=== PATIENT | female | born 1990 | race Caucasian/White ===

== ENCOUNTER 2016-04-17 15:58 | Emergency (ER) | payer OTHER ==
[~2016-04-17] VITALS: Ht 172.7 cm; Wt 119.0 kg
[~2016-04-17 15:58] MED LIST: DOXY100C76 PO; LEVO88TA3 PO; SERT-234 PO
[2016-04-17 16:02] VITALS: TEMP 36.6; Ht 172.7 cm; Wt 119.0 kg
[2016-04-17] MEDS ORDERED: FAMOTIDINE 20MG/102 ML D5W IV STA (16:14)
[2016-04-17 16:26] VITALS: O2SAT 97
[2016-04-17 16:30] VITALS: BP 134/69
[2016-04-17 17:28] VITALS: PULSE 74
[2016-04-17] MEDS ORDERED: EPP3/2 IM (17:34)
[2016-04-17] MEDS ORDERED: PRED20TA PO (17:34)
--- NOTE | 2016-04-17 19:29 | EMERGENCY ROOM VISIT NOTE ---
History Report prepared by Laquita: Aydin Lobo Under the Supervision of: Dr. Rikki Kate M.D. First contact with patient: 16:04 Chief Complaint: ALLERGIC REACTION Stated Complaint: ALLERGIC REACTION Nursing Triage Summary: Pt reports she began feeling itchy, hives, SOB, tightness in throat after eating a ham sandwich, flaming hot cheetos, and a peanut butter cup. Pt has no known food allergies. Pt does hav several medication allergies. Pt was given Benadryl 50mg, Zofran 4mg, and Solumedrol 125mg. Pt reports pain in throat and some itchiness still History of Present Illness The patient is a 25 year old female who presents to the Emergency Room with complaints of an acute allergic reaction since 1399 today. The patient's mouth started to become itchy. She then broke out in hives all over her body. She also had some throat tightening. The patient had 25 mg Benadryl at home and another dose in the ambulance. She also had Solu-Medrol and Zofran in the ambulance. The patient is feeling better but is still covered in hives. She did not have any tongue swelling or shortness of breath. The patient does not have any known food or environmental allergies. She is allergic to multiple antibiotics, including Bactrim, Keflex, Vancomycin, and Penicillin. The patient ate a ham sandwich, Cheetos, and a peanut butter cup today. She does not have a family history of food allergies. The patient has not started any new soaps, detergents, or medications. She has never been tested for allergies. She is allergic to bee stings. Source of History: patient Onset: 1399 Position: other (global) Quality: other (allergic reaction) Timing: other (acute) Modifying Factors (Relieving): other (Benadryl, Solu-Medrol) Associated Symptoms: + rash (hives), No SOB Review of Systems See HPI for pertinent positives & negatives. A total of 10 systems reviewed and were otherwise negative. Past Medical & Surgical Medical Problems: (1) Arthroscopy of knee joint (2) Removal of ovarian cyst (3) Tonsillectomy Family History Patient reports no known family medical history. Social History Smoking Status: Never Smoker Alcohol Use: none Drug Use: none Housing Status: lives with family Current/Historical Medications Scheduled Epinephrine (Epipen), 0.3 MG IM UD Prednisone (Prednisone), 0 PO DAILY Sertraline (Zoloft), 100 MG PO DAILY Allergies Coded Allergies: Cephalexin (Verified Allergy, Severe, SHORTNESS OF BREATH, 04/17/16) ,BLISTERS IN MOUTH Sulfamethoxazole w/Trimethoprim (Verified Allergy, Severe, SHORTNESS OF BREATH, blisters in mouth, 04/17/16) Oxycodone (Verified Allergy, Intermediate, possible hives, 04/17/16) 04/19/11: TYLENOL WITH CODEINE IS OK TO TAKE PER PATIENT Penicillins (Verified Allergy, Intermediate, possible hives, 04/17/16) Latex1 -Allergic Contact Dermititis (Verified Allergy, Unknown, red bumpy skin, 04/17/16) Midazolam (Verified Adverse Reaction, Intermediate, ITCHY, 04/17/16) Vancomycin (Verified Adverse Reaction, Mild, ITCHING,FLUSHING, ?SREEDHAR SYNDROME, 04/17/16) Physical Exam Vital Signs Date Time Temp Pulse Resp B/P Pulse Ox O2 Delivery O2 Flow Rate FiO2 04/17/16 17:28 74 17 04/17/16 16:58 78 17 04/17/16 16:39 80 04/17/16 16:30 134/69 04/17/16 16:26 77 20 132/69 97 Room Air 04/17/16 16:02 36.6 81 16 122/70 96 Room Air 04/17/16 16:02 97 Room Air Physical Exam Constitutional: Vital signs reviewed. Eyes: Pupils are equal round reactive to light. Conjunctiva are noninjected. ENT: Pharynx is clear without erythema or exudate. Mucous membranes are moist. No swelling to the tongue or uvula. Neck supple without meningeal signs. Respiratory: Clear to auscultation bilaterally. Breath sounds are equal bilaterally. No stridor or wheezing. Cardiovascular: Regular rate and rhythm. No rubs or gallops. GI: Soft, nondistended and nontender. Bowel sounds are present. Musculoskeletal: No peripheral edema. Integumentary: No cyanosis. Diffuse hives to the face, trunk, and upper extremities. Neurological: The patient is awake and alert. No focal deficits. Psychiatric: Normal affect. Medical Decision & Procedures Medications Administered Medications (Trade) Dose Ordered Sig/Anjel Route Start Time Stop Time Status Last Admin Dose Admin Famotidine (Pepcid 20mg/100 ml) 20 mg ONE STAT IV 04/17/16 16:14 04/17/16 16:15 DC 04/17/16 16:26 20 MG ED Course 1610: The patient was evaluated in room C7. A complete history and physical exam was performed. 161: Famotidine 20 mg IV. 1730: The patient is feeling better, and her rash is improved. I reviewed the discharge instructions with her. I also reviewed indications for epi pen use. She is ready for discharge. Medical Decision This is a 75-year-old female presents with an acute allergic reaction. I did perform a limited focused review of portions of the patient's old chart on the electronic medical record. The patient was here on April 06 with chest pain and shortness of breath. She was worked up in the ED and discharged to follow up with her PCP. I did evaluate the patient as noted above. The patient did receive Solu-Medrol and Benadryl prior to arrival. I did treat her with Pepcid IV. I did observe the patient here in the emergency department. She did have improvement of her symptoms and did feel well enough for discharge. At this time the cause of her symptoms is unclear. She has no known food allergies or any family history of food allergies. I did recommend she follow with her doctor for referral to an registered public health nurse for further evaluation. She was told to avoid nuts as this is a common allergen. She was also given a prescription for prednisone and an EpiPen and instructed on its use. She does state that she has previously had an EpiPen. She was discharged in good condition. Impression Primary Impression: Acute allergic reaction Scribe Attestation The scribe's documentation has been prepared under my direct and personally reviewed by me in its entirety. I confirm that the note above accurately reflects all work, treatment, procedures, and medical decision making performed by me. Departure Information Dispostion Home / Self-Care Prescriptions Prednisone (Prednisone) 20 Mg Tab 0 PO DAILY, #14 TAB 3 TABS DAILY FOR 2 DAYS, THEN 2 TABS DAILY FOR 2 DAYS, THEN 1 TAB DAILY FOR 2 DAYS, THEN 1/2 TAB DAILY FOR 2 DAYS. Prov: Rikki Kate M.D. 04/17/16 Epinephrine (EPIPEN) 0.3 Mg/0.3 Ml Inj 0.3 MG IM UD, #1 BOX Prov: Rikki Kate M.D. 04/17/16 Referrals RV. Guillaume MD (PCP) Forms HOME CARE DOCUMENTATION FORM, IMPORTANT VISIT INFORMATION Patient Instructions A Signature Page, ED Allergic Reaction General Other, My [facility] Additional Instructions You have been examined and treated today on an emergency basis only. This is not a substitute for, or an effort to provide, complete comprehensive medical care. It is impossible to recognize and treat all injuries or illnesses in a single emergency department visit. It is therefore important that you follow up closely with your physician for registered public health nurse referral. Call as soon as possible for an appointment. Return for worsening symptoms or if you develop swelling to your tongue or difficulty breathing or any other concerning symptoms. Problem Qualifiers Primary Impression: Acute allergic reaction Encounter type: initial encounter Qualified Codes: T78.40XA - Allergy, unspecified, initial encounter
== END 2016-04-17 17:52 | disposition home or self-care (01) ==
LOC: EDBD 15:58 → C.EDC 15:58
DX: T78.40XA Allergy, unspecified, initial encounter (principal); X58.XXXA Exposure to other specified factors, initial encounter; Z91.040 Latex allergy status; Z88.0 Allergy status to penicillin; Z88.1 Allergy status to other antibiotic agents; Z88.2 Allergy status to sulfonamides; Z91.030 Bee allergy status

== ENCOUNTER 2016-06-07 09:59 | Emergency (ER) | payer OTHER ==
[~2016-06-07] VITALS: Ht 172.7 cm; Wt 120.7 kg
[~2016-06-07 09:59] MED LIST changes: -DOXY100C76 PO; +EPP3/2 IM; -LEVO88TA3 PO; +PRED20TA PO
[2016-06-07 10:13] VITALS: Ht 172.7 cm; Wt 120.7 kg
[2016-06-07] MEDS ORDERED: ACETAMINOPHEN 500 MG TAB PO ONE (11:01)
[2016-06-07] MEDS ORDERED: KETOROLAC TROMETHAMINE 30 MG/ML VIAL IV STA (11:11)
[2016-06-07] MEDS ORDERED: SODIUM CHLORIDE 0.9% 1000ML 1,000 ML IV ONE (11:15)
[2016-06-07 11:45] LABS: BASO % 0.2 %; BASO ABS # 0.01 K/uL (0-0.2); COMPLETE YES; HEMATOCRIT 34.3 % (37-47); IG% 0.2 %; LYMPH % 9.4 %; LYMPH ABS # 0.61 K/uL (1.2-3.4); MEAN CELL VOLUME 80.7 fL (80-100); MEAN CORPUSCULAR HEMOGLOBIN 28.7 pg (25-34); MEAN CORPUSCULAR HGB CONC 35.6 g/dl (32-36); MONO % 3.7 %; NEUT % 86.5 %; PLATELET COUNT 168 K/uL (130-400); RED BLOOD COUNT 4.25 M/uL (4.2-5.4)
[2016-06-07 11:52] LABS: ALT/SGPT 77 U/L (12-78); BLOOD UREA NITROGEN 9 mg/dl (7-18); BUN/CREATININE RATIO 11.1 (10-20); CALCIUM 8.1 mg/dl (8.5-10.1); CARBON DIOXIDE 24 mmol/L (21-32); CHLORIDE 103 mmol/L (98-107); CREATININE 0.81 mg/dl (0.60-1.20); GLUCOSE 102 mg/dl (70-99); POTASSIUM 3.2 mmol/L (3.5-5.1); SODIUM 137 mmol/L (136-145)
[2016-06-07 11:55] LABS: ALKALINE PHOSPHATASE 72 U/L (45-117); AST/SGOT 53 U/L (15-37)
--- NOTE | 2016-06-07 12:12 | DIAGNOSTIC IMAGING REPORT ---
CHEST 2 VIEWS ROUTINE CLINICAL HISTORY: fevers CHILLS COMPARISON STUDY: 04/06/2016 FINDINGS: The cardiac and mediastinal contours are normal. There is no evidence of focal pulmonary consolidation. There is no evidence of failure. No pleural effusions are visualized.[ IMPRESSION: No active disease in the chest. Electronically signed by: Ruddy Everett M.D. 06/07/2016 12:10 PM Dictated Date/Time: 06/07/2016 12:10 PM
[2016-06-07 12:36] LABS: URINE APPEARANCE CLEAR (CLEAR); URINE BILIRUBIN NEG (NEG); URINE COLOR YELLOW; URINE NITRITE NEG (NEG); URINE SPECIFIC GRAVITY 1.019 (1.000-1.030); UROBILINOGEN NEG (NEG)
[2016-06-07 12:38] LABS: MANUAL MICROSCOPIC REQUIRED? NO; REVIEW REQ? NO
[2016-06-07 13:33] VITALS: BP 127/67; PULSE 115; TEMP 37.4; O2SAT 96
--- NOTE | 2016-06-07 21:44 | EMERGENCY ROOM VISIT NOTE ---
ED Visit Note First contact with patient: 10:59 Chief Complaint: Fever, headache, body aches. History of Present Illness: Ms. Ryder is a 25-year-old white female who ambulates into the ED accompanied by her complaining of fever, headache and body aches. 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 difficile. Patient reports her symptoms started yesterday with nausea, vomiting and diarrhea. Her nausea and vomiting has ceased but she continues to have diarrhea. She describes her diarrhea as multiple yellowish watery stools without any formed component. She does report she took Imodium yesterday and she has had decreasing episodes of diarrhea. She goes on to report that yesterday afternoon she developed a fever and a throbbing headache. Since chest afternoon the symptoms have been constant. She describes her headache as a bitemporal throbbing sensation with a pressure behind the eyes. At rest she rates her discomfort 3/10 and when she moves from the lying to sitting position or standing up her patient increase his total 7/ 10. Associated with her headache she reports she has been having fevers and this morning she reports having a temperature of 105F orally. She has been alternating ibuprofen and Tylenol with minimal relief of her headache and a slight decrease in her fevers that quickly rebound. Associated with these symptoms also she reports body and joint aches. She denies visual changes, hearing changes, difficulty speaking, difficulty swallowing, upper respiratory tract symptoms, cough, wheezing, shortness of breath, neck stiffness/pain, flank pain, abdominal pain, bloody stool, bloody vomitus, urinary symptoms, hematuria, skin eruptions, skin color changes. Review of Systems: As noted above in history of present illness. All body systems were reviewed and found to be negative as noted above. Past Medical History: Patient denies. Current Medications: Zoloft, EpiPen. Allergies to Medications: Cephalexin, latex, midazolam, oxycodone, penicillin, vancomycin, Bactrim. Social History: Patient is currently employed; she lives with her and children and feels safe in her home environment; she denies tobacco and alcohol use. Physical Examination: Vital Signs: Date Time Temp Pulse Resp B/P Pulse Ox O2 Delivery O2 Flow Rate FiO2 06/07/16 13:33 37.4 115 20 127/67 96 06/07/16 12:52 37.8 112 20 114/54 97 Room Air 06/07/16 11:40 39.0 110 18 133/75 98 Room Air 06/07/16 10:13 39.2 134 18 161/77 96 Room Air GENERAL: 25-year-old female in moderate distress due to symptoms, nontoxic- appearing, afebrile and hemodynamically stable. NEUROLOGICAL: Awake, alert and oriented to person, place and time. Answering questions appropriately and following commands. Normal gait. Good hand eye coordination. No focal motor sensory deficits. Cranial nerves II through XII grossly intact. Short-term and long-term recall. SKIN: Warm, dry and pink. No soft tissue eruptions or trauma noted. HEENT: Atraumatic and normocephalic. No erythema or tenderness over the frontal or maxillary sinuses. Tympanic membranes are not erythematous or edematous. PERRLA. EOMI without nystagmus. Sclera white and conjunctiva pink. No drainage from naris. Oral cavity moist and pink. Uvula is midline and no abscesses are seen. Pharynx is nonerythematous or edematous. Speech normal. No lymphadenopathy. Trachea midline. No jugular venous distention. BACK: No tenderness over the bony spine. No meningismus or nuchal rigidity. Full range of motion of the cervical spine. No CVA tenderness. THORAX: Lungs sounds are clear to auscultation and equal bilaterally with symmetrical chest wall. No wheezing, rales or rhonchi. No crepitus, tenderness , subcutaneous air or deformities noted. HEART: Tachycardic rate and rhythm. No gallops, rubs or murmurs are appreciated. ABDOMEN: Obese, soft and nontender. Positive bowel sounds in all quadrants. No guarding, rigidity or organomegaly. EXTREMITIES: Moves all extremities well on command and with purpose. All distal neurovascular statuses are intact and equal bilaterally. No calf tenderness or cords. ED Course: Patient is assessed as noted above. Laboratory Testing: Test 06/07/16 10:25 06/07/16 10:30 06/07/16 11:42 06/07/16 12:25 Range/Units Influenza Type A Antigen Neg for Influ A NEG Influenza Type B Antigen Neg for Influ B NEG White Blood Count 6.50 4.8-10.8 K/uL Red Blood Count 4.25 4.2-5.4 M/uL Hemoglobin 12.2 12.0-16.0 g/dL Hematocrit 34.3 37-47 % Mean Corpuscular Volume 80.7 80-100 fL Mean Corpuscular Hemoglobin 28.7 25-34 pg Mean Corpuscular Hemoglobin Concent 35.6 32-36 g/dl Platelet Count 168 130-400 K/uL Mean Platelet Volume 9.0 7.4-10.4 fL Neutrophils (%) (Auto) 86.5 % Lymphocytes (%) (Auto) 9.4 % Monocytes (%) (Auto) 3.7 % Eosinophils (%) (Auto) 0.0 % Basophils (%) (Auto) 0.2 % Neutrophils # (Auto) 5.63 1.4-6.5 K/uL Lymphocytes # (Auto) 0.61 1.2-3.4 K/uL Monocytes # (Auto) 0.24 0.11-0.59 K/uL Eosinophils # (Auto) 0.00 0-0.5 K/uL Basophils # (Auto) 0.01 0-0.2 K/uL RDW Standard Deviation 39.1 36.4-46.3 fL RDW Coefficient of Variation 13.4 11.5-14.5 % Immature Granulocyte % (Auto) 0.2 % Immature Granulocyte # (Auto) 0.01 0.00-0.02 K/uL Sodium Level 137 136-145 mmol/L Potassium Level 3.2 3.5-5.1 mmol/L Chloride Level 103 98-107 mmol/L Carbon Dioxide Level 24 21-32 mmol/L Anion Gap 10.0 3-11 mmol/L Blood Urea Nitrogen 9 7-18 mg/dl Creatinine 0.81 0.60-1.20 mg/dl Est Creatinine Clear Calc Drug Dose 142.6 ml/min Estimated GFR () 115.4 Estimated GFR (Non- 99.5 BUN/Creatinine Ratio 11.1 10-20 Random Glucose 102 70-99 mg/dl Calcium Level 8.1 8.5-10.1 mg/dl Total Bilirubin 0.5 0.2-1 mg/dl Direct Bilirubin < 0.1 0-0.2 mg/dl Aspartate Amino Transf (AST/SGOT) 53 15-37 U/L Alanine Aminotransferase (ALT/SGPT) 77 12-78 U/L Alkaline Phosphatase 72 45-117 U/L Total Protein 7.3 6.4-8.2 gm/dl Albumin 3.8 3.4-5.0 gm/dl Bedside Lactic Acid Venous 0.56 0.90-1.70 mmol/L Urine Color YELLOW Urine Appearance CLEAR CLEAR Urine pH 5.0 4.5-7.5 Urine Specific [place] 1.019 1.000-1.030 Urine Protein NEG NEG Urine Glucose (UA) NEG NEG Urine Ketones NEG NEG Urine Occult Blood NEG NEG Urine Nitrite NEG NEG Urine Bilirubin NEG NEG Urine Urobilinogen NEG NEG Urine Leukocyte Esterase NEG NEG Urine Test NEG NEG Blood Culture: Pending Chest X-Rays: Were read by myself and the radiologist showing no acute infiltrates, effusions or pneumothorax. Normal heart silhouette. No free air under the diaphragm. Patient was hydrated with 2 L of normal saline and received 1 g of Tylenol by mouth for her fever and 30 mg of Toradol IV for her pain and fever. Patient was reassessed times during her stay in the emergency department. Patient's case was reviewed with Dr. Fermin; we agreed on diagnostic approach, treatment, disposition and plan. Patient was educated about lissy's findings and instructed on her treatment plan; she verbalizes understanding and agreement with this plan. Clinical Impression: Flulike symptoms. Fevers. Nausea, vomiting and diarrhea. Decision-Making: Initially my differential diagnosis I considered influenza, pneumonia, meningitis, viral syndrome, gastroenteritis and other causes. Disposition: Patient discharged home in stable condition accompanied by her ; prior to departure she was reassessed and subjectively reported she was feeling better. She rated her headache discomfort 4/10 and near resolution of her body aches. Plan: Patient was encouraged to alternate 600 mg of ibuprofen 650 mg of acetaminophen every 3 hours as needed for pain fevers. Patient was encouraged to use return of Imodium for diarrhea. Patient was encouraged to stay well-hydrated increased clear fluids. Patient was offered Zofran and refused. Patient was encouraged PCP for recheck in one to 2 days. 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 Patient was encouraged return the ED for worsening symptoms, bloody stools, bloody vomitus or any new/concerning symptoms.
== END 2016-06-07 13:34 | disposition home or self-care (01) ==
LOC: C.EDB 10:01 → C.EDA 13:34
DX: R50.9 Fever, unspecified (principal); R11.2 Nausea with vomiting, unspecified; R19.7 Diarrhea, unspecified; R51 Headache; Z79.899 Other long term (current) drug therapy

== ENCOUNTER 2016-09-04 08:04 | Emergency (ER) | payer OTHER ==
[~2016-09-04] VITALS: Ht 172.7 cm; Wt 119.8 kg
[~2016-09-04 08:04] MED LIST changes: -PRED20TA PO
[2016-09-04 08:07] VITALS: TEMP 36.8; Ht 172.7 cm; Wt 119.8 kg
[2016-09-04] MEDS ORDERED: KETOROLAC TROMETHAMINE 60 MG/2 ML VIAL IM STA (08:32)
--- NOTE | 2016-09-04 09:13 | DIAGNOSTIC IMAGING REPORT ---
RIGHT SHOULDER MIN 2 VIEWS ROUTINE CLINICAL HISTORY: Right shoulder pain following fall. COMPARISON: None FINDINGS: Alignment of the right shoulder is anatomic. There is no acute fracture or dislocation. IMPRESSION: No acute fracture or dislocation of the right shoulder. Electronically signed by: Ashish Freire M.D. 09/04/2016 9:12 AM Dictated Date/Time: 09/04/2016 9:11 AM
--- NOTE | 2016-09-04 09:15 | DIAGNOSTIC IMAGING REPORT ---
RIGHT ELBOW MIN 3 VIEWS ROUTINE CLINICAL HISTORY: Right elbow pain following fall. COMPARISON: None FINDINGS: Alignment of the right elbow is anatomic. No acute fracture or joint effusion is identified. IMPRESSION: No acute fracture or joint effusion of the right elbow. Electronically signed by: Ashish Freire M.D. 09/04/2016 9:13 AM Dictated Date/Time: 09/04/2016 9:12 AM
--- NOTE | 2016-09-04 09:52 | EMERGENCY ROOM VISIT NOTE ---
ED Visit Note First contact with patient: 08:13 CHIEF COMPLAINT: Right shoulder and elbow pain after a fall yesterday HISTORY OF PRESENT ILLNESS: Patient is a [id number] 26-year-old white female who presents to emergency department for evaluation of right shoulder and elbow pain. She reports that she ran down a roughly 3 steps to her basement , at which point she fell, landing with her arms out in front of her on her concrete basement floor. She was rushing to attended to her grandmother who had fallen. She initially did not pay attention to any of her injuries because of her concern for her family member, later on noted discomfort in the right shoulder and in the right elbow. She denies any sensation the shoulder dislocated or slipped in or out of place. She did not strike her head or lose consciousness. She notes pain in the anterior posterior aspect of the shoulder that is worse with any attempts at shoulder movement, and pain in the medial right elbow. The pain radiates slightly to her wrist, which complains more of a pulling sensation from her shoulder downward. She tried taking ibuprofen and applying Sher. She reports a sensation that her arm is "asleep" but denies any weakness. She denies any prior history of any significant shoulder or elbow injuries. She rates her pain an 8/10. REVIEW OF SYSTEMS: Review of systems as per HPI. All other systems reviewed were negative. At least 6 systems reviewed. PMH: Electronic medical records are reviewed and summarized as above/below. See Problem List. SOCIAL HISTORY: Patient lives at home with her family. 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 Nonsmoker. PHYSICAL EXAM: Vital Signs: Reviewed nurse's notes. GENERAL: Patient is uncomfortable appearing 26-year-old white female who is awake and alert and seated on the gurney holding her right arm at her side. HEENT: Head - normocephalic and atraumatic. Pupils are equal, round, and reactive to light. Extraocular eye muscles are intact and sclera are anicteric. Ears - bilaterally patent canals with no evidence of hemotympanum. Nose - moist nasal mucosa without evidence of trauma or discharge. Mouth - moist buccal mucosa with no trauma to the teeth or signs of malocclusion. Neck: The neck is supple and there is no pain to palpation over the posterior cervical spine and no obvious step-offs or deformities. There is no JVD or tracheal deviation. Musculoskeletal: Examination of the right upper extremity did not notice any obvious deformity, particularly at the shoulder or elbow. No areas of ecchymosis, abrasions or swelling noted. She has tenderness globally over the shoulder, both anteriorly over the proximal biceps tendon and laterally over the rotator cuff insertion. There is no pain over the clavicle. No pain over the acromial acromioclavicular joint. She has pain with any attempt at forward flexion or abduction, but that can be passively internally and externally rotated fully. She cannot tolerate any strength testing. Examination of the elbow does not demonstrate any joint effusion. No swelling or tenderness over the olecranon or over the radial head. She does have pain over the medial epicondyle. She can flex greater than 90, extend the elbow fully and can pronate and supinate with only slight discomfort. Wrist is nontender to palpation. Distal pulses are easily palpable. Sensation and reflexes are intact. EMERGENCY DEPARTMENT COURSE: Patient was medicated with Toradol 60 mg IM. X- rays of the right shoulder and right elbow were obtained. Findings are as noted below. Patient was fitted with an arm sling. Supportive care measures were discussed. She is established with [facility] and is encouraged to follow-up with them. Differential diagnosis includes shoulder dislocation, shoulder subluxation, acromioclavicular separation, clavicle fracture, wrist fracture, soft tissue injury including rotator cuff, capsule or labrum, elbow fracture, elbow dislocation, ligamentous injury, among others. RIGHT ELBOW MIN 3 VIEWS ROUTINE CLINICAL HISTORY: Right elbow pain following fall. COMPARISON: None FINDINGS: Alignment of the right elbow is anatomic. No acute fracture or joint effusion is identified. IMPRESSION: No acute fracture or joint effusion of the right elbow. RIGHT SHOULDER MIN 2 VIEWS ROUTINE CLINICAL HISTORY: Right shoulder pain following fall. COMPARISON: None FINDINGS: Alignment of the right shoulder is anatomic. There is no acute fracture or dislocation. IMPRESSION: No acute fracture or dislocation of the right shoulder. Problem List Medical Problems: (1) Acute allergic reaction Status: Resolved (2) Anemia Status: Resolved (3) Anxiety Status: Chronic (4) Depression Status: Chronic (5) Elective induction of labor planned Status: Resolved (6) Fever Status: Resolved (7) Head ache Status: Resolved (8) Headache Status: Resolved (9) Influenza-like symptoms Status: Resolved (10) Irritable Bowel Syndrome Status: Chronic (11) Nausea and vomiting during Status: Resolved (12) endometritis Status: Resolved (13) Shortness of breath during Status: Resolved (14) SOB (shortness of breath) Status: Resolved (15) Swelling Status: Resolved (16) Thoracic back pain Status: Resolved (17) Vaginal delivery Status: Resolved (18) Vaginal tear resulting from childbirth Status: Resolved Surgical Problems: (1) Arthroscopy of knee joint Status: Resolved (2) Removal of ovarian cyst Status: Resolved (3) Tonsillectomy Status: Resolved Current/Historical Medications Scheduled Epinephrine (Epipen), 0.3 MG IM UD Sertraline (Zoloft), 100 MG PO DAILY Allergies Coded Allergies: Cephalexin (Verified Allergy, Severe, SHORTNESS OF BREATH, 09/04/16) ,BLISTERS IN MOUTH Sulfamethoxazole w/Trimethoprim (Verified Allergy, Severe, SHORTNESS OF BREATH, blisters in mouth, 09/04/16) Oxycodone (Verified Allergy, Intermediate, possible hives, 09/04/16) 04/19/11: TYLENOL WITH CODEINE IS OK TO TAKE PER PATIENT Penicillins (Verified Allergy, Intermediate, possible hives, 09/04/16) Latex1 -Allergic Contact Dermititis (Verified Allergy, Unknown, red bumpy skin, 09/04/16) Midazolam (Verified Adverse Reaction, Intermediate, ITCHY, 09/04/16) Vancomycin (Verified Adverse Reaction, Mild, ITCHING,FLUSHING, ?SREEDHAR SYNDROME, 09/04/16) Vital Signs Date Time Temp Pulse Resp B/P Pulse Ox O2 Delivery O2 Flow Rate FiO2 09/04/16 10:00 82 18 139/91 97 09/04/16 08:07 36.8 85 16 121/75 98 Room Air Medications Administered Medications (Trade) Dose Ordered Sig/Anjel Route Start Time Stop Time Status Last Admin Dose Admin Ketorolac Tromethamine (Toradol Inj) 60 mg NOW STAT IM 09/04/16 08:32 09/04/16 08:34 DC 09/04/16 08:37 60 MG Departure Information Impression Primary Impression: Right shoulder injury Additional Impression: Fall Referrals RV. Guillaume MD (PCP) Kurt Kenney M.D. Patient Instructions [facility] Additional Instructions Ibuprofen(Motrin, Advil) may be used for fever or pain. Use 600mg every six hours as needed. Take with food. Avoid using more than 2400mg in a 24 hour period. Do not use 2400mg per day for more than three consecutive days without physician direction. Prolonged inappropriate use can lead to stomach upset or ulcers. This medication can be taken if you need to drive, work, or perform activities which may be dangerous when taking narcotic pain medication. (AND/OR) Acetaminophen(Tylenol) may be used for fever or pain. Use 1000mg every six hours as needed. Avoid using more than 3000mg in a 24 hour period. This medication can be taken if you need to drive, work, or perform activities which may be dangerous when taking narcotic pain medication. Ice compresses for 20 minutes at a time four times daily for 2-3 days. Use the sling as instructed. Remove your arm from the sling 4-6 times a day and move all the joints around to keep them loose. Rest and elevate your injury. Continue current medications. Return to the ER immediately for any numbness, tingling, severe pain, extreme swelling in the extremity or as needed. Call [facility] tomorrow to arrange follow up for your injury. Problem Qualifiers
[2016-09-04 10:00] VITALS: BP 139/91; PULSE 82; O2SAT 97
== END 2016-09-04 10:01 | disposition home or self-care (01) ==
LOC: C.EDB 08:06 → C.EDA 10:01
DX: S49.91XA Unspecified injury of right shoulder and upper arm, initial encounter (principal); M25.521 Pain in right elbow; W10.9XXA Fall (on) (from) unspecified stairs and steps, initial encounter; F41.9 Anxiety disorder, unspecified; F32.9 Major depressive disorder, single episode, unspecified; Z79.899 Other long term (current) drug therapy; Y92.018 Other place in single-family (private) house as the place of occurrence of the external cause

== ENCOUNTER 2017-03-01 11:37 | Emergency (ER) | payer OTHER ==
[~2017-03-01] VITALS: Ht 172.7 cm; Wt 119.0 kg
[2017-03-01 11:39] VITALS: TEMP 36.7; Ht 172.7 cm; Wt 119.0 kg
[2017-03-01 12:28] LABS: BASO % 0.3 %; BASO ABS # 0.03 K/uL (0-0.2); COMPLETE YES; EOS % 3.4 %; IG% 0.2 %; LYMPH % 27.8 %; LYMPH ABS # 2.95 K/uL (1.2-3.4); MEAN CELL VOLUME 81.1 fL (80-100); MEAN CORPUSCULAR HEMOGLOBIN 27.7 pg (25-34); MEAN CORPUSCULAR HGB CONC 34.2 g/dl (32-36); MONO % 3.7 %; NEUT % 64.6 %; PLATELET COUNT 243 K/uL (130-400); RED BLOOD COUNT 4.44 M/uL (4.2-5.4)
[2017-03-01 12:36] LABS: INR 0.9 (0.9-1.1); PROTHROMBIN TIME (PATIENT) 10.1 SECONDS (9.0-12.0)
[2017-03-01 12:50] LABS: PREG INTERNAL NEGATIVE QC NEG CLEAR BACKGROUND; PREG INTERNAL POSITIVE QC POS CONTROL LINE
--- NOTE | 2017-03-01 12:53 | DIAGNOSTIC IMAGING REPORT ---
CHEST ONE VIEW PORTABLE CLINICAL HISTORY: Chest pain. Nausea. COMPARISON STUDY: Chest radiograph June 07, 2016. FINDINGS: Lung volumes are normal. Lungs are clear. No pneumothorax or pleural effusion is present. Pulmonary vascularity is normal. Cardiomediastinal silhouette is normal. IMPRESSION: No acute cardiopulmonary findings. Electronically signed by: Ashish Freire M.D. 03/01/2017 12:52 PM Dictated Date/Time: 03/01/2017 12:51 PM
[2017-03-01 12:59] LABS: ALT/SGPT 21 U/L (12-78); AST/SGOT 10 U/L (15-37); BLOOD UREA NITROGEN 9 mg/dl (7-18); BUN/CREATININE RATIO 10.9 (10-20); CALCIUM 8.8 mg/dl (8.5-10.1); CARBON DIOXIDE 26 mmol/L (21-32); CHLORIDE 105 mmol/L (98-107); CREATININE 0.83 mg/dl (0.60-1.20); GLUCOSE 135 mg/dl (70-99); MAGNESIUM 2.2 mg/dl (1.8-2.4); POTASSIUM 3.5 mmol/L (3.5-5.1); SODIUM 136 mmol/L (136-145)
--- NOTE | 2017-03-01 13:06 | EMERGENCY ROOM VISIT NOTE ---
History Report prepared by Laquita: Eric Wylie Under the Supervision of: Dr. Go Ramirez D.O. First contact with patient: 11:52 Chief Complaint: PALPITATIONS Stated Complaint: PALPITATIONS, NAUSEA, DIZZY History of Present Illness The patient is a 26 year old female who presents to the Emergency Room with complaints of intermittent episodes of heart palpitations beginning yesterday. The patient estimates that her pulse was about 140 bpm. She also complains of arm and leg "heaviness", shortness of breath, diaphoresis, and nausea along with her episodes. She was driving last night when her symptoms occurred initially. The patient's second episode occurred last night while at work. 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 She has had two episodes since then. The patient estimates that her episodes last for about 5 minutes at a time. She notes that her blood pressure was 160/110 during one of her episodes yesterday. She denies chance of . The patient denies any calf pain, or vomiting. She states that she feels very fatigued at baseline currently. Source of History: patient Onset: Yesterday Symptom Intensity: around 5 minute long episodes Quality: other (heart palpitations) Timing: intermittent Associated Symptoms: + diaphoresis, + SOB, + nausea, No vomiting Note: The patient denies calf pain. She also complains of arm and leg "heaviness". Review of Systems See HPI for pertinent positives & negatives. A total of 10 systems reviewed and were otherwise negative. Past Medical & Surgical Medical Problems: (1) Acute allergic reaction (2) Anemia (3) Anxiety (4) Depression (5) Elective induction of labor planned (6) Fever (7) Head ache (8) Headache (9) Influenza-like symptoms (10) Irritable Bowel Syndrome (11) Nausea and vomiting during (12) endometritis (13) Shortness of breath during (14) SOB (shortness of breath) (15) Swelling (16) Thoracic back pain (17) Vaginal delivery (18) Vaginal tear resulting from childbirth Surgical Problems: (1) Arthroscopy of knee joint (2) Removal of ovarian cyst (3) Tonsillectomy Family History Patient reports no known family medical history. Social History Smoking Status: Never Smoker Alcohol Use: none Drug Use: none Housing Status: lives with family Current/Historical Medications Scheduled Epinephrine (Epipen), 0.3 MG IM UD Allergies Coded Allergies: Cephalexin (Verified Allergy, Severe, SHORTNESS OF BREATH, 03/01/17) ,BLISTERS IN MOUTH Sulfamethoxazole w/Trimethoprim (Verified Allergy, Severe, SHORTNESS OF BREATH, blisters in mouth, 03/01/17) Oxycodone (Verified Allergy, Intermediate, possible hives, 03/01/17) 04/19/11: TYLENOL WITH CODEINE IS OK TO TAKE PER PATIENT Penicillins (Verified Allergy, Intermediate, possible hives, 03/01/17) Latex1 -Allergic Contact Dermititis (Verified Allergy, Unknown, red bumpy skin, 03/01/17) Midazolam (Verified Adverse Reaction, Intermediate, ITCHY, 03/01/17) Vancomycin (Verified Adverse Reaction, Mild, ITCHING,FLUSHING, ?SREEDHAR SYNDROME, 03/01/17) Physical Exam Vital Signs Date Time Temp Pulse Resp B/P (MAP) Pulse Ox O2 Delivery O2 Flow Rate FiO2 03/01/17 14:20 101 20 155/94 97 03/01/17 11:55 69 03/01/17 11:39 36.7 90 18 118/79 98 Room Air Physical Exam GENERAL: Patient is awake, alert, and in no acute distress. Patient is resting comfortably and showing no signs of anxiety EYES: The conjunctivae are clear. The pupils are round and reactive. EARS, NOSE, MOUTH AND THROAT: The nose is without any evidence of any deformity. Mucous membranes are moist tongue is midline NECK: The neck is nontender and supple. RESPIRATORY: Normal respiratory effort is noted there is no evidence of wheezing rhonchi or rales CARDIOVASCULAR: Regular rate and rhythm noted there no murmurs rubs or gallops normal S1 normal S2 GASTROINTESTINAL: The abdomen is soft. Bowel sounds are present in all quadrants. Abdomen is nontender MUSCULOSKELETAL/EXTREMITIES: There is no evidence of gross deformity full range of motion is noted in the hips and shoulders SKIN: There is no obvious evidence of any rash. There are no petechiae, pallor or cyanosis noted. NEUROLOGIC: Patient is awake alert and oriented x3. Medical Decision & Procedures ER Provider Diagnostic Interpretation: X-ray results as stated below per interpretation by me and the radiologist. CHEST ONE VIEW PORTABLE FINDINGS: Lung volumes are normal. Lungs are clear. No pneumothorax or pleural effusion is present. Pulmonary vascularity is normal. Cardiomediastinal silhouette is normal. IMPRESSION: No acute cardiopulmonary findings. Electronically signed by: Ashish Freire M.D. 03/01/2017 12:52 PM Laboratory Results 03/01/17 12:15 Red Blood Count 4.44, Mean Corpuscular Volume 81.1, Mean Corpuscular Hemoglobin 27.7, Mean Corpuscular Hemoglobin Concent 34.2, Mean Platelet Volume 9.0, Neutrophils (%) (Auto) 64.6, Lymphocytes (%) (Auto) 27.8, Monocytes (%) (Auto) 3.7, Eosinophils (%) (Auto) 3.4, Basophils (%) (Auto) 0.3, Neutrophils # (Auto) 6.85, Lymphocytes # (Auto) 2.95, Monocytes # (Auto) 0.39, Eosinophils # (Auto) 0.36, Basophils # (Auto) 0.03 03/01/17 12:15 Test 03/01/17 12:15 White Blood Count 10.60 K/uL (4.8-10.8) Red Blood Count 4.44 M/uL (4.2-5.4) Hemoglobin 12.3 g/dL (12.0-16.0) Hematocrit 36.0 % (37-47) Mean Corpuscular Volume 81.1 fL (80-100) Mean Corpuscular Hemoglobin 27.7 pg (25-34) Mean Corpuscular Hemoglobin Concent 34.2 g/dl (32-36) Platelet Count 243 K/uL (130-400) Mean Platelet Volume 9.0 fL (7.4-10.4) Neutrophils (%) (Auto) 64.6 % Lymphocytes (%) (Auto) 27.8 % Monocytes (%) (Auto) 3.7 % Eosinophils (%) (Auto) 3.4 % Basophils (%) (Auto) 0.3 % Neutrophils # (Auto) 6.85 K/uL (1.4-6.5) Lymphocytes # (Auto) 2.95 K/uL (1.2-3.4) Monocytes # (Auto) 0.39 K/uL (0.11-0.59) Eosinophils # (Auto) 0.36 K/uL (0-0.5) Basophils # (Auto) 0.03 K/uL (0-0.2) RDW Standard Deviation 41.4 fL (36.4-46.3) RDW Coefficient of Variation 14.1 % (11.5-14.5) Immature Granulocyte % (Auto) 0.2 % Immature Granulocyte # (Auto) 0.02 K/uL (0.00-0.02) Prothrombin Time 10.1 SECONDS (9.0-12.0) Prothromb Time International Ratio 0.9 (0.9-1.1) Activated Partial Thromboplast Time 25.9 SECONDS (21.0-31.0) Partial Thromboplastin Ratio 1.0 Anion Gap 5.0 mmol/L (3-11) Est Creatinine Clear Calc Drug Dose 136.9 ml/min Estimated GFR () 111.2 Estimated GFR (Non- 96.0 BUN/Creatinine Ratio 10.9 (10-20) Calcium Level 8.8 mg/dl (8.5-10.1) Magnesium Level 2.2 mg/dl (1.8-2.4) Total Bilirubin 0.3 mg/dl (0.2-1) Direct Bilirubin < 0.1 mg/dl (0-0.2) Aspartate Amino Transf (AST/SGOT) 10 U/L (15-37) Alanine Aminotransferase (ALT/SGPT) 21 U/L (12-78) Alkaline Phosphatase 80 U/L (45-117) Total Creatine Kinase 88 U/L (26-192) Creatine Kinase MB 0.5 ng/ml (0.5-3.6) Creatine Kinase MB Ratio 0.6 (0-3.0) Troponin I < 0.015 ng/ml (0-0.045) Total Protein 7.5 gm/dl (6.4-8.2) Albumin 3.7 gm/dl (3.4-5.0) Lipase 176 U/L (73-393) Thyroid Stimulating Hormone (TSH) 4.370 uIu/ml (0.300-4.500) Free Thyroxine 1.01 ng/dl (0.80-1.60) Human Chorionic Gonadotropin, Qual NEG (NEG) Lyme Disease IgG Antibody NEG (NEG) Lyme Disease IgM Antibody NEG (NEG) Laboratory results per my review. ECG Indication: palpitations Rate (beats per minute): 77 Rhythm: normal sinus Findings: no acute ischemic change, no ectopy Comparison ECG Date: October 08, 2014 Change: no significant change ED Course 1155: The patient was evaluated in room B8. A complete history and physical examination were performed. 1355: Upon reevaluation, the patient is resting comfortably. I discussed the results and treatment plan with her. She verbalized agreement of the treatment plan. The patient was discharged home. Medical Decision Differential diagnosis: Etiologies such as premature contractions, electrolyte abnormality, cardiac dysrhythmia, thyroid dysfunction, pulmonary embolism, infection, gastrointestinal, as well as others were entertained. Nursing notes reviewed. The patient is a 26-year-old female who presented to the emergency department for evaluation of palpitations. The patient does have a medical background and states that she started having problems with palpitations and fast heart rate. She states that afterwards she was having aching through the arms. The patient cannot have any dysrhythmia while she was in the emergency department. I discussed the patient's laboratory and radiographic studies with her. She was encouraged to rest and avoid any strenuous activity. She was also encouraged to avoid caffeinated beverages. I encouraged her follow-up with her primary care physician for further evaluation including echocardiogram and Holter monitoring. She was encouraged to return to the emergency apartment immediately if symptoms change worsen or the need arises. Medication Reconcilliation Current Medication List: was personally reviewed by me Blood Pressure Screening Patient's blood pressure: Normal blood pressure Blood pressure disposition: Did not require urgent referral Impression Primary Impression: Palpitation Scribe Attestation The scribe's documentation has been prepared under my direction and personally reviewed by me in its entirety. I confirm that the note above accurately reflects all work, treatment, procedures, and medical decision making performed by me. Departure Information Dispostion Home / Self-Care Referrals RV. Guillaume MD (PCP) Forms HOME CARE DOCUMENTATION FORM, IMPORTANT VISIT INFORMATION, WORK / SCHOOL INSTRUCTIONS Patient Instructions ED Palpitations, My [facility] Additional Instructions Call your family to schedule a follow-up appointment. Rest and avoid any strenuous activity. Drink plenty clear liquids and keep herself well-hydrated. Discussed the possibility that you may require further studies such as an echocardiogram a Holter monitor or an event monitor to further evaluate because her symptoms. Return to emergency department immediately if symptoms change worsen or the need arises.
[2017-03-01 13:07] LABS: ALKALINE PHOSPHATASE 80 U/L (45-117); CKMB/CK RATIO 0.6 (0-3.0)
[2017-03-01 13:18] LABS: LYME DISEASE AB IGM NEG (NEG)
[2017-03-01 13:19] LABS: LYME DISEASE AB IGG NEG (NEG)
[2017-03-01 14:20] VITALS: BP 155/94; PULSE 101; O2SAT 97
== END 2017-03-01 14:20 | disposition home or self-care (01) ==
LOC: C.EDB 11:40
DX: R00.2 Palpitations (principal); D64.9 Anemia, unspecified; F41.9 Anxiety disorder, unspecified; F32.9 Major depressive disorder, single episode, unspecified; K58.9 Irritable bowel syndrome, unspecified

== ENCOUNTER 2017-04-12 09:27 | Emergency (ER) | payer OTHER ==
[~2017-04-12] VITALS: Ht 172.7 cm; Wt 117.1 kg
[~2017-04-12 09:27] MED LIST changes: -SERT-234 PO
[2017-04-12 09:36] VITALS: BP 142/77; PULSE 88; TEMP 36.7; O2SAT 97; Ht 172.7 cm; Wt 117.1 kg
[2017-04-12] MEDS ORDERED: PROPARACAINE HCL 0.5% OP SOLN 15 ML BTL ONE (10:07)
[2017-04-12] MEDS ORDERED: CIPR0.3S OPR (10:26)
[2017-04-12] MEDS ORDERED: OXYC1TAB3 PO (10:26)
--- NOTE | 2017-04-12 10:28 | EMERGENCY ROOM VISIT NOTE ---
ED Visit Note First contact with patient: 09:58 CHIEF COMPLAINT: Right eye pain times one day HISTORY OF PRESENT ILLNESS: Patient is a 26-year-old white female who presents emergency department for evaluation of right eye pain. She does wear contact lenses. She admits that she wears her the lenses longer than she should, and she was on her last pair so she was trying to stretch. She states that she was wearing her contacts at work last night when her eye began to feel irritated and dry. She tried using some lubricating eyedrops did not help, and ultimately removed the contact lens. She notes a constant, grinding foreign body sensation in tried using eyedrops didn't contact lens solution without relief. She notes progressively worsening pain in the right eye with associated tearing and blurry vision overnight. She tried cold compresses, Motrin and Tylenol without relief. She rates her discomfort a 4/10. She denies any crusting or matting of her eye, no significant redness or injection noted. She has no symptoms in the left side. REVIEW OF SYSTEMS: Review of systems as per HPI. All other systems reviewed were negative. At least 6 systems reviewed. PMH: Electronic medical records are reviewed and summarized as above/below. See Problem List. SOCIAL HISTORY: Patient lives at home with her family. 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 Nonsmoker. PHYSICAL EXAM: Vital Signs: Reviewed Nurse's notes. VISUAL ACUITY: 20/70 in the right eye, 20/15 in the left eye with glasses. GENERAL: Patient is an otherwise well-appearing 18-year-old white female who is awake and alert and sitting in a darkened room in mild distress due to her stated complaint. EYES: The pupils are round, equal, and react to light. EOMs are full. There is discharge of clear tears from the right eye, without significant conjunctival injection. The eye was anesthetized with proparacaine drops to facilitate exam. There is no foreign body visible under the eyelid even after lid eversion. No foreign body was seen embedded in the cornea. The cornea was clear and no hyphema was seen. The patient had scattered punctate uptake of fluorescein, concentrated more centrally, without corneal ulceration or dendritic pattern. EMERGENCY DEPARTMENT COURSE: The patient was seen and evaluated as above. She is a contact lens wearer, and presents to the emergency department for right eye pain. On exam she has findings consistent with punctate keratitis. There is no evidence for foreign body, no large abrasion, no corneal ulcer or dendritic pattern. The patient will be placed on Ciloxan drops, and was provided a prescription for oxycodone to use for pain. She was encouraged to follow-up with her eye doctor on Friday for recheck, seek immediate medical attention for worsening symptoms. She is discharged to home in good condition. Medication reconciliation: I attest that I have personally reviewed the patient' s current medication list. Blood pressure screening: Patient was found to have a slightly elevated blood pressure due to circumstances. I do not believe that the patient requires hypertension monitoring. Patient was reviewed in the [facility] Prescription Drug Monitoring Program, and there were no red flags noted. Problem List Medical Problems: (1) Acute allergic reaction Status: Resolved (2) Anemia Status: Resolved (3) Anxiety Status: Chronic (4) Depression Status: Chronic (5) Elective induction of labor planned Status: Resolved (6) Fall Status: Resolved (7) Fever Status: Resolved (8) Head ache Status: Resolved (9) Headache Status: Resolved (10) Influenza-like symptoms Status: Resolved (11) Irritable Bowel Syndrome Status: Chronic (12) Nausea and vomiting during Status: Resolved (13) Palpitation Status: Resolved (14) endometritis Status: Resolved (15) Right shoulder injury Status: Resolved (16) Shortness of breath during Status: Resolved (17) SOB (shortness of breath) Status: Resolved (18) Swelling Status: Resolved (19) Thoracic back pain Status: Resolved (20) Vaginal delivery Status: Resolved (21) Vaginal tear resulting from childbirth Status: Resolved Surgical Problems: (1) Arthroscopy of knee joint Status: Resolved (2) Removal of ovarian cyst Status: Resolved (3) Tonsillectomy Status: Resolved Current/Historical Medications Scheduled Ciprofloxacin Hcl (Ophth) (Ciloxan Oph), 2 DROP OPR Q4H Epinephrine (Epipen), 0.3 MG IM UD Levothyroxine Sodium (Levothyroxine Sodium), 50 MCG PO DAILY Scheduled PRN Oxycodone Immediate Rel Tab (Roxicodone Ir), 1-2 TAB PO Q4H PRN for Severe Pain Allergies Coded Allergies: Cephalexin (Verified Allergy, Severe, SHORTNESS OF BREATH, 04/12/17) ,BLISTERS IN MOUTH Sulfamethoxazole w/Trimethoprim (Verified Allergy, Severe, SHORTNESS OF BREATH, blisters in mouth, 04/12/17) Penicillins (Verified Allergy, Intermediate, possible hives, 04/12/17) Latex1 -Allergic Contact Dermititis (Verified Allergy, Unknown, red bumpy skin, 04/12/17) Midazolam (Verified Adverse Reaction, Intermediate, ITCHY, 04/12/17) Vancomycin (Verified Adverse Reaction, Mild, ITCHING,FLUSHING, ?SREEDHAR SYNDROME, 04/12/17) Vital Signs Date Time Temp Pulse Resp B/P (MAP) Pulse Ox O2 Delivery O2 Flow Rate FiO2 04/12/17 09:36 36.7 88 18 142/77 97 Room Air Departure Information Impression Primary Impression: Superficial punctate keratitis of right eye Prescriptions Oxycodone Immediate Rel Tab (ROXICODONE IR) 5 Mg Tab 1-2 TAB PO Q4H Y for Severe Pain, #12 TAB For Initial Treatment Prov: Leilani Rodgers PA 04/12/17 Ciprofloxacin Hcl (Ophth) (CILOXAN OPH) 0.3 % Bel 2 DROP OPR Q4H, #1 BTL Prov: Leilani Rodgers PA 04/12/17 Referrals RV. Guillaume MD (PCP) Patient Instructions [facility] Additional Instructions Oxycodone (OxyIR) 5mg: Take 1-2 pills every four hours for breakthrough pain. Avoid alcohol, operating machinery or dangerous equipment, working on ladders or roofs, DRIVING, or situations where being under the influence may be dangerous. It is recommended to use an [id number] stool softener such as Colace, 100mg twice daily while taking this medication to avoid constipation. Ibuprofen(Motrin, Advil) may be used for fever or pain. Use 600mg every six hours as needed. Take with food. Avoid using more than 2400mg in a 24 hour period. Do not use 2400mg per day for more than three consecutive days without physician direction. Prolonged inappropriate use can lead to stomach upset or ulcers. (AND/OR) Acetaminophen(Tylenol) may be used for fever or pain. Use 1000mg every six hours as needed. Avoid using more than 3000mg in a 24 hour period. 2 antibiotic eyedrops every 4-6 hrs (while awake) for 7 days. Ciloxan eyedrops: 2 drops in the right eye every 4 hours while awake for the next 5-7 days. You may also intermittently apply a cool compress and wear sunglasses for additional relief. If you wear contacts, no contact lens use for 7-10 days. Start with all-new contact lenses, solution, rewetting drops and cosmetics. Follow-up with your eye doctor on Friday for recheck. Return to the ED for worsening pain or changes in vision.
[2017-04-12] MEDS ORDERED: LEVO50TA6 PO (10:31)
== END 2017-04-12 10:38 | disposition home or self-care (01) ==
LOC: C.EDB 09:28 → C.EDA 10:38
DX: H16.141 Punctate keratitis, right eye (principal); F41.9 Anxiety disorder, unspecified; F32.9 Major depressive disorder, single episode, unspecified; K58.9 Irritable bowel syndrome, unspecified

== ENCOUNTER 2017-07-23 15:37 | Emergency (ER) | payer OTHER ==
[~2017-07-23] VITALS: Ht 172.7 cm; Wt 118.9 kg
[~2017-07-23 15:37] MED LIST changes: +LEVO50TA6 PO; +OXYC1TAB3 PO
[2017-07-23 15:43] VITALS: TEMP 36.8; Ht 172.7 cm; Wt 118.9 kg
[2017-07-23] MEDS ORDERED: SODIUM CHLORIDE 0.9% 1000ML 1,000 ML IV SCH (16:04)
--- NOTE | 2017-07-23 16:21 | DIAGNOSTIC IMAGING REPORT ---
CT HEAD WITHOUT CONTRAST (CT) CLINICAL HISTORY: Stroke COMPARISON STUDY: No previous studies for comparison. TECHNIQUE: Axial CT of the brain is performed from the vertex to the skull base. IV contrast was not administered for this examination. A dose lowering technique was utilized adhering to the principles of ALARA. CT DOSE: 537.48 mGy.cm FINDINGS: No intra or extra-axial mass lesions are visualized. There is no CT evidence of acute cortical infarction. There is no evidence of midline shift. There is no acute hemorrhage. No calvarial fractures are visualized. There is no evidence of pathologic ventricular dilatation. There is no evidence of acute sinusitis IMPRESSION: Normal noncontrast head CT. Electronically signed by: Ruddy Everett M.D. 07/23/2017 4:20 PM Dictated Date/Time: 07/23/2017 4:18 PM
[2017-07-23] MEDS ORDERED: KETOROLAC TROMETHAMINE 30 MG/ML VIAL IV STA (16:25)
--- NOTE | 2017-07-23 16:31 | DIAGNOSTIC IMAGING REPORT ---
CHEST ONE VIEW PORTABLE CLINICAL HISTORY: Stroke COMPARISON STUDY: 03/01/2017 FINDINGS: The cardiac and mediastinal contours are normal. There is no evidence of focal pulmonary consolidation. There is no evidence of failure. No pleural effusions are visualized.[ IMPRESSION: No active disease in the chest. Electronically signed by: Ruddy Everett M.D. 07/23/2017 4:29 PM Dictated Date/Time: 07/23/2017 4:29 PM
[2017-07-23 16:35] LABS: BASO % 0.2 %; BASO ABS # 0.02 K/uL (0-0.2); EOS % 1.7 %; EOS ABS # 0.15 K/uL (0-0.5); HEMATOCRIT 36.5 % (37-47); HEMOGLOBIN 12.3 g/dL (12.0-16.0); IG# 0.01 K/uL (0.00-0.02); LYMPH % 27.3 %; LYMPH ABS # 2.37 K/uL (1.2-3.4); MEAN CORPUSCULAR HEMOGLOBIN 26.6 pg (25-34); MEAN CORPUSCULAR HGB CONC 33.7 g/dl (32-36); MEAN PLATELET VOLUME 8.6 fL (7.4-10.4); MONO % 5.6 %; MONO ABS # 0.49 K/uL (0.11-0.59); NEUT % 65.1 %; NEUT ABS # 5.64 K/uL (1.4-6.5); PLATELET COUNT 240 K/uL (130-400); RED CELL DISTRIBUTION WIDTH CV 13.9 % (11.5-14.5); RED CELL DISTRIBUTION WIDTH SD 39.2 fL (36.4-46.3); WHITE BLOOD COUNT 8.68 K/uL (4.8-10.8)
[2017-07-23 16:41] LABS: PTT PATIENT 24.1 SECONDS (21.0-31.0)
[2017-07-23 16:51] LABS: BLOOD UREA NITROGEN 12 mg/dl (7-18); CARBON DIOXIDE 28 mmol/L (21-32); CREATININE 0.89 mg/dl (0.60-1.20); GLUCOSE 88 mg/dl (70-99); POTASSIUM 3.8 mmol/L (3.5-5.1); SODIUM 140 mmol/L (136-145)
[2017-07-23 16:56] LABS: CKMB 0.7 ng/ml (0.5-3.6)
[2017-07-23] MEDS ORDERED: PROCHLORPERAZINE 5 MG/ML 2 ML VIAL IV STA (17:42)
[2017-07-23] MEDS ORDERED: DiphenhydrAMINE HCL 50 MG/ML VIAL IV STA (17:42)
[2017-07-23] MEDS ORDERED: GADAVIST IV PRN (20:45)
--- NOTE | 2017-07-23 21:16 | DIAGNOSTIC IMAGING REPORT ---
BRAIN COMBO FOR IAC CLINICAL HISTORY: 27 years-old Female presenting with also focus on auditory canal, headache 2 days ago, left-sided facial droop, left hand numbness, repeat episode today, no history of stroke. TECHNIQUE: Multisequence, multiplanar MR imaging of the brain was performed before and after the administration of intravenous contrast. IV contrast: 11.5 mL of Gadavist. COMPARISON: Noncontrast CT head from earlier the same day. FINDINGS: Image quality is somewhat degraded by motion artifact. This mildly limits diagnostic sensitivity. The internal auditory canals are normal. Normal thickness of the transiting nerves. No abnormal enhancement. Normal signal intensity of the inner ears structures. Remaining visualized cranial nerves within normal limits. Ventricles and sulci normal in size. Brain parenchyma normal in appearance with preserved tirado-white differentiation. No mass effect or midline shift. No restricted diffusion to suggest acute ischemia. No hemorrhage. No extra-axial fluid collection. T2 skull base flow voids preserved. No abnormal parenchymal enhancement. Bone marrow signal intensity within the calvarium within normal limits. IMPRESSION: 1. No acute intracranial pathology. No abnormal enhancement. Electronically signed by: Rosalio Stack M.D. 07/23/2017 9:15 PM Dictated Date/Time: 07/23/2017 9:10 PM
[2017-07-23 21:57] VITALS: BP 117/90; PULSE 96; O2SAT 98
--- NOTE | 2017-07-23 23:30 | EMERGENCY ROOM VISIT NOTE ---
History Report prepared by Laquita: Aixa Ward Under the Supervision of: Dr. Sandro Fermin D.O. First contact with patient: 15:54 Chief Complaint: NEURO SYMPTOMS Stated Complaint: FIELDS, FACIAL DROOP, RT ARM HEAVINESS, TIA/COMPLEX WI History of Present Illness The patient is a 27 year old female who presents to the Emergency Room with complaints of persistent headache starting 1300. The headache started suddenly and is located behind her left eye. She took Advil to no significant relief. She then developed left facial droop and right arm tingling and weakness. The left side of her face also feels like it is tingling. She denies any numbness or weakness in the legs. The right arm weakness is improving. She denies any cough, rhinorrhea, chest pain, SOB, or abdominal pain. The patient had similar symptoms 2 days ago. She was seen in the [place] ED. She had a CTA head and CTA neck which were negative. They recommended she stay in the hospital, but she wanted to be discharged home. The headache resolved the next morning. She has a history of migraines, urticarial vasculitis, and bilateral ovarian cystectomy. She denies any recent tick bites. Source of History: patient Onset: 1300 Position: head Quality: sharp Timing: other (persistent) Associated Symptoms: + weakness, No cough, No chest pain, No SOB, No abdominal pain Note: Pt reports left facial droop. Review of Systems See HPI for pertinent positives & negatives. A total of 10 systems reviewed and were otherwise negative. Past Medical & Surgical Medical Problems: (1) Acute allergic reaction (2) Anemia (3) Anxiety (4) Depression (5) Elective induction of labor planned (6) Fall (7) Fever (8) Head ache (9) Headache (10) Influenza-like symptoms (11) Irritable Bowel Syndrome (12) Nausea and vomiting during (13) Palpitation (14) endometritis (15) Right shoulder injury (16) Shortness of breath during (17) SOB (shortness of breath) (18) Swelling (19) Thoracic back pain (20) Vaginal delivery (21) Vaginal tear resulting from childbirth Surgical Problems: (1) Arthroscopy of knee joint (2) Removal of ovarian cyst (3) Tonsillectomy Family History Cancer Diabetes mellitus FH: lung disease Heart disease Hypertension Kidney disease Kidney stones Seizures Social History Smoking Status: Never Smoker Alcohol Use: none Drug Use: none Housing Status: lives with family Current/Historical Medications Scheduled Epinephrine (Epipen), 0.3 MG IM UD Allergies Coded Allergies: Cephalexin (Verified Allergy, Severe, SHORTNESS OF BREATH, 07/23/17) ,BLISTERS IN MOUTH Sulfamethoxazole w/Trimethoprim (Verified Allergy, Severe, SHORTNESS OF BREATH, blisters in mouth, 07/23/17) Penicillins (Verified Allergy, Intermediate, possible hives, 07/23/17) Latex1 -Allergic Contact Dermititis (Verified Allergy, Unknown, red bumpy skin, 07/23/17) Midazolam (Verified Adverse Reaction, Intermediate, ITCHY, 07/23/17) Vancomycin (Verified Adverse Reaction, Mild, ITCHING,FLUSHING, ?SREEDHAR SYNDROME, 07/23/17) Physical Exam Vital Signs Date Time Temp Pulse Resp B/P (MAP) Pulse Ox O2 Delivery O2 Flow Rate FiO2 07/23/17 21:57 96 16 117/90 98 07/23/17 19:46 69 16 155/89 98 Room Air 07/23/17 18:32 75 16 121/65 98 Room Air 07/23/17 17:40 74 16 120/74 98 Room Air 07/23/17 17:20 54 20 124/77 100 Room Air 07/23/17 16:45 84 22 138/67 100 Room Air 07/23/17 16:37 82 22 136/87 98 Room Air 07/23/17 16:31 Room Air 07/23/17 16:28 Room Air 07/23/17 16:25 87 07/23/17 15:43 36.8 92 18 139/77 96 Room Air Physical Exam GENERAL: Sitting up in bed, disheveled, no acute distress, non-toxic EYE EXAM: normal conjunctiva. PERRL and EOM's intact. OROPHARYNX: no exudate, no erythema, lips, buccal mucosa, and tongue normal and mucous membranes are moist NECK: supple, no nuchal rigidity, no adenopathy, non-tender LUNGS: Clear to auscultation. Normal chest wall mechanics HEART: no murmurs, S1 normal and S2 normal ABDOMEN: abdomen soft, non-tender, normo-active bowel sounds, no masses, no rebound or guarding. BACK: Back is symmetrical on inspection and there is no deformity, no midline tenderness, no CVA tenderness. SKIN: no rashes and no bruising UPPER EXTREMITIES: upper extremities are grossly normal. LOWER EXTREMITIES: No pitting edema. NEURO EXAM: Slight left sided facial droop most prominent in left eyebrow very limited at the angle of the mouth, mild weakness with grasp of the right upper extremity. No drift. Finger to nose intact. Gross sensation intact. No weakness in left upper and left lower extremity. No weakness in right lower. Movement of the right shoulder and elbow are completely intact. Medical Decision & Procedures ER Provider Diagnostic Interpretation: Radiology results as stated below per my review and the radiologist's interpretation: CHEST ONE VIEW PORTABLE CLINICAL HISTORY: Stroke COMPARISON STUDY: 03/01/2017 FINDINGS: The cardiac and mediastinal contours are normal. There is no evidence of focal pulmonary consolidation. There is no evidence of failure. No pleural effusions are visualized.[ IMPRESSION: No active disease in the chest. Electronically signed by: Ruddy Everett M.D. 07/23/2017 4:29 PM Dictated Date/Time: 07/23/2017 4:[address] HEAD WITHOUT CONTRAST (CT) CLINICAL HISTORY: Stroke COMPARISON STUDY: No previous studies for comparison. TECHNIQUE: Axial CT of the brain is performed from the vertex to the skull base. IV contrast was not administered for this examination. A dose lowering technique was utilized adhering to the principles of ALARA. CT DOSE: 537.48 mGy.cm FINDINGS: No intra or extra-axial mass lesions are visualized. There is no CT evidence of acute cortical infarction. There is no evidence of midline shift. There is no acute hemorrhage. No calvarial fractures are visualized. There is no evidence of pathologic ventricular dilatation. There is no evidence of acute sinusitis IMPRESSION: Normal noncontrast head CT. Electronically signed by: Ruddy Everett M.D. 07/23/2017 4:20 PM Dictated Date/Time: 07/23/2017 4:18 PM BRAIN COMBO FOR IAC CLINICAL HISTORY: 27 years-old Female presenting with also focus on auditory canal, headache 2 days ago, left-sided facial droop, left hand numbness, repeat episode today, no history of stroke. TECHNIQUE: Multisequence, multiplanar MR imaging of the brain was performed before and after the administration of intravenous contrast. IV contrast: 11.5 mL of Gadavist. COMPARISON: Noncontrast CT head from earlier the same day. FINDINGS: Image quality is somewhat degraded by motion artifact. This mildly limits diagnostic sensitivity. The internal auditory canals are normal. Normal thickness of the transiting nerves. No abnormal enhancement. Normal signal intensity of the inner ears structures. Remaining visualized cranial nerves within normal limits. Ventricles and sulci normal in size. Brain parenchyma normal in appearance with preserved tirado-white differentiation. No mass effect or midline shift. No restricted diffusion to suggest acute ischemia. No hemorrhage. No extra-axial fluid collection. T2 skull base flow voids preserved. No abnormal parenchymal enhancement. Bone marrow signal intensity within the calvarium within normal limits. IMPRESSION: 1. No acute intracranial pathology. No abnormal enhancement. Electronically signed by: Rosalio Stack M.D. 07/23/2017 9:15 PM Dictated Date/Time: 07/23/2017 9:10 PM Laboratory Results 07/23/17 16:21 Red Blood Count 4.62, Mean Corpuscular Volume 79.0, Mean Corpuscular Hemoglobin 26.6, Mean Corpuscular Hemoglobin Concent 33.7, Mean Platelet Volume 8.6, Neutrophils (%) (Auto) 65.1, Lymphocytes (%) (Auto) 27.3, Monocytes (%) (Auto) 5.6, Eosinophils (%) (Auto) 1.7, Basophils (%) (Auto) 0.2, Neutrophils # (Auto) 5.64, Lymphocytes # (Auto) 2.37, Monocytes # (Auto) 0.49, Eosinophils # (Auto) 0.15, Basophils # (Auto) 0.02 07/23/17 16:21 Test 07/23/17 16:21 White Blood Count 8.68 K/uL (4.8-10.8) Red Blood Count 4.62 M/uL (4.2-5.4) Hemoglobin 12.3 g/dL (12.0-16.0) Hematocrit 36.5 % (37-47) Mean Corpuscular Volume 79.0 fL (80-100) Mean Corpuscular Hemoglobin 26.6 pg (25-34) Mean Corpuscular Hemoglobin Concent 33.7 g/dl (32-36) Platelet Count 240 K/uL (130-400) Mean Platelet Volume 8.6 fL (7.4-10.4) Neutrophils (%) (Auto) 65.1 % Lymphocytes (%) (Auto) 27.3 % Monocytes (%) (Auto) 5.6 % Eosinophils (%) (Auto) 1.7 % Basophils (%) (Auto) 0.2 % Neutrophils # (Auto) 5.64 K/uL (1.4-6.5) Lymphocytes # (Auto) 2.37 K/uL (1.2-3.4) Monocytes # (Auto) 0.49 K/uL (0.11-0.59) Eosinophils # (Auto) 0.15 K/uL (0-0.5) Basophils # (Auto) 0.02 K/uL (0-0.2) RDW Standard Deviation 39.2 fL (36.4-46.3) RDW Coefficient of Variation 13.9 % (11.5-14.5) Immature Granulocyte % (Auto) 0.1 % Immature Granulocyte # (Auto) 0.01 K/uL (0.00-0.02) Prothrombin Time 10.0 SECONDS (9.0-12.0) Prothromb Time International Ratio 1.0 (0.9-1.1) Activated Partial Thromboplast Time 24.1 SECONDS (21.0-31.0) Partial Thromboplastin Ratio 0.9 Anion Gap 5.0 mmol/L (3-11) Est Creatinine Clear Calc Drug Dose 126.5 ml/min Estimated GFR () 101.5 Estimated GFR (Non- 87.6 BUN/Creatinine Ratio 13.4 (10-20) Calcium Level 9.0 mg/dl (8.5-10.1) Magnesium Level 2.1 mg/dl (1.8-2.4) Total Creatine Kinase 98 U/L (26-192) Creatine Kinase MB 0.7 ng/ml (0.5-3.6) Creatine Kinase MB Ratio 0.7 (0-3.0) Troponin I < 0.015 ng/ml (0-0.045) Laboratory results per my review. Medications Administered Medications (Trade) Dose Ordered Sig/Anjel Route Start Time Stop Time Status Last Admin Dose Admin Sodium Chloride 1,000 ml @ 50 mls/hr Q20H IV 07/23/17 16:04 07/23/17 22:36 DC 07/23/17 16:04 50 MLS/HR Ketorolac Tromethamine (Toradol Inj) 30 mg NOW STAT IV 07/23/17 16:25 07/23/17 16:26 DC 07/23/17 16:58 30 MG Diphenhydramine HCl (Benadryl Inj) 50 mg NOW STAT IV 07/23/17 17:42 07/23/17 17:43 DC 07/23/17 17:53 50 MG Prochlorperazine Edisylate (Compazine Inj) 10 mg NOW STAT IV 07/23/17 17:42 07/23/17 17:43 DC 07/23/17 17:53 10 MG ECG Per My Interpretation Indication: weakness Rate (beats per minute): 73 Rhythm: sinus rhythm Findings: no ectopy, other (normal axis) ED Course ED COURSE: Vital signs were reviewed and showed normal vitals. The patients medical record was reviewed The above diagnostic studies were performed and reviewed. ED treatments and interventions as stated above. 1557: The patient was evaluated in room B7. A complete history and physical examination was performed. 1604: Sodium Chloride 1000 ml @ 50 mls/hr IV. 1625: Toradol Inj 30 mg IV. 1630: I discussed the patient's case with Dr. Rivas, [facility] neurology telemedicine. 1704: Dr. Rivas has evaluated the patient and thinks this is likely a migraine , but cannot rule out stroke. Recommends MRI with and without. 1736: I reevaluated the patient. RUE numbness is resolved. 1742: Compazine Inj 10 mg IV, Benadryl Inj 50 mg IV. 2130: Upon reevaluation, the patient's facial droop and numbness are gone. She still notes a slight droop of the left eye. I discussed my findings with the patient and she understands and agrees with the treatment plan. Based on the patients age, coexisting illnesses, exam and lab findings the decision to treat as an outpatient was made. The patient remained stable while under my care. The patient appeared well at the time of discharge. Medical Decision Differential Diagnosis includes but is not limited to ischemic Stroke, hemorrhagic stroke, bells palsy, mass, neoplasm, migraine headache, seizure, subarachnoid hemorrhage, TIA, and transient global amnesia. Patient is a 27-year-old female who presents the ER for headache associated with left-sided facial droop and right upper extremity weakness. She had similar symptoms on Julito but it was associated with a headache and left upper extremity weakness. Her symptoms started at 1 PM today. Shortly following my evaluation: Stroke alert. Patient was taken to CT. CT without bleed. Discussed with neurology. She is evaluated by neurology via tele-stroke. CBC along with BMP and troponin was negative. INR was normal. Chest x-ray unremarkable. Patient was evaluated by neurology and with her crossed symptoms and presentation it was felt as though this is most consistent with a migraine. MRI brain was obtained and was unremarkable. No stroke or masses. Chest x- ray was unremarkable. Patient was given IV Toradol, Compazine and Benadryl. She had complete resolution of all of her symptoms with the exception of slight droop of her left eyebrow. Per neurology if her symptoms significantly improved or resolved and she had a negative MRI she could go home. I did feel this is reasonable. She has no other complaints at this time. She is completely neurologically intact with a slight left droop of her left eyebrow. Vitals are stable. Discussed with Pt concerning signs and symptoms to watch out for. Pt was instructed to follow up with their PCP and discussed with the patient their option to return to the ED at anytime for persistent or worsening symptoms. The appropriate anticipatory guidance and out-patient management, including indications for return to the emergency department, were explained at length to the patient and understood. Medication Reconcilliation Current Medication List: was personally reviewed by me Blood Pressure Screening Patient's blood pressure: Normal blood pressure Blood pressure disposition: Did not require urgent referral Consults Time Called: 1625 Consulting Physician: Dr. Rivas, [facility] neurology telemedicine Returned Call: 1630 I discussed the patient's case with Dr. Rivas, [facility] neurology telemedicine. Impression Primary Impression: Migraine Additional Impression: Facial droop Scribe Attestation The scribe's documentation has been prepared under my direction and personally reviewed by me in its entirety. I confirm that the note above accurately reflects all work, treatment, procedures, and medical decision making performed by me. Departure Information Dispostion Home / Self-Care Referrals RV. Guillaume MD (PCP) Pauline Sterling M.D. Forms HOME CARE DOCUMENTATION FORM, IMPORTANT VISIT INFORMATION, WORK / SCHOOL INSTRUCTIONS Patient Instructions Headaches Migraine and Tension, My [facility], Stroke Dc Additional Instructions Please follow up with your primary care doctor with in the next 24 hours. Any worsening of your symptoms, please return to the ED immediately. This includes any fevers greater than 100.4, worsening pain, chest pain, shortness breath, weakness or numbness in her arms or legs, later vision, trouble talking, persistent nausea, vomiting, unable to eat or drink, or any other concerning signs or symptoms from your standpoint. Please follow-up with neurology as listed below. Please do not drive while these symptoms persist. Please take a baby aspirin once daily. Stroke History Time Last Known Well 1300 Stroke t-PA Criteria Reviewed Does NOT meet criteria for t-PA Reason t-PA Not Given Treatment not indicated Problem Qualifiers Primary Impression: Migraine Migraine type: unspecified Status migrainosus presence: without status migrainosus Intractability: not intractable Qualified Codes: G43.909 - Migraine, unspecified, not intractable, without status migrainosus
== END 2017-07-23 21:58 | disposition home or self-care (01) ==
LOC: C.EDB 15:40
DX: G43.909 Migraine, unspecified, not intractable, without status migrainosus (principal); R29.810 Facial weakness; Z88.8 Allergy status to other drugs, medicaments and biological substances; Z88.0 Allergy status to penicillin; Z91.040 Latex allergy status; Z88.2 Allergy status to sulfonamides

== ENCOUNTER 2019-05-13 07:21 | Inpatient (IN) ==
--- OUTSIDE RECORDS SUMMARY | 2019-05-13 07:25 | External Medical Summary | Continuity of Care Document ---
:1990 Author Name Yemi Seaman, Provider Address Unavailable Unavailable , Care Team Providers Name Role Phone Unavailable Unavailable Unavailable Sebastian TOBAR, Julia Unavailable [email or web address] TEENA NAGY M.D., MARLYS Beck Unavailable Un available Unavailable Unavailable Unavailable Problems Dactylitis of finger (730.24) Acne (706.1) (L70.9) Diabetes mellitus screening (V77.1) (Z13.1) Overweight (278.02) (E66.3) Migraines (346.90) (G43.909) Subclinical hypothyroidism (244.8) (E03.9) Abnormal thyroid function test (794.5) (R94.6) Anxiety (300.00) (F41.9) Encounter for screening for lipoid disorders (V77.91) (Z13.2 20) Fatigue (780.79) (R53.83) Right shoulder injury (959.2) (S49.91XA) Depression (311) (F32.9) Hot flashes (782.62) (R23.2) Right supraspinatus tendinitis (726.10) (M75.91) Allergies and Adverse Reactions Bactrim TABS (Allergy) Keflex TABS (Allergy) Penicillins (Allergy) Percocet TABS (Allergy) Vancomycin HCl SOLR (Allergy) Versed SOLN (Allergy) Wellbutrin TABS (Allergy) Medications SUMAtriptan Succinate 50 MG Oral Tablet; TAKE 1 TABLET FOR MIGRAINE RELIEF. MAY REPEAT in 1 hour if needed EKATERINA Cortes Start: 24-Jul-2017 Quantity: 9 Refills: 1 Procedures History of Ovarian Cystectomy Right Stat us: Completed History of Knee Surgery Status: Complete d History of Dental Surgery Status: Comple saundra History of Tonsillectomy With Adenoidectomy Status: Completed History of Oophorectomy Unilateral Right Side Status: Completed Immunizations Zoster (Zostavax) On: 25-May-2010 Tdap (Adacel) On: 27-Sep-2010 PPD On: 24-Oct-2015 Family History Mother Family history of lung cancer (V16.1) (Z80.1) Status: Active Family history of hypertension (V17.49) (Z82.49) Status: Act marilu Family history of malignant neoplasm of brain (V16.8) (Z80.8 ) Status: Active Grandfather Family history of leukemia (V16.6) (Z80.6) Status: Active Grandmother Family history of colon cancer (V16.0) (Z80.0) Status: Activ e Social History - Smoking Status Never smoker Plan of Treatment Planned Observations Planned Goals not documented Results No Known Results Results not documented Encounters Appointment; Julia Cortes PA-C 16-Jan-2018 14:00 Encounter Diagnosis: Problem not documented Appointment; Monie Andrews CRNP 26-Dec-2017 15:15 Encounter Diagnosis: Problem not documented Appointment; Julia Cortes PA-C 24-Jul-2017 13:45 Encounter Diagnosis: Problem not documented
[2019-05-13] MEDS ORDERED: OXYTOCIN 30 UNITS/500 ML BAG IV PRN ×2 (08:34→15:43)
[2019-05-13] MEDS ORDERED: miSOPROStoL 50 MCG TAB PO SCH (08:45)
[2019-05-13 09:07] LABS: Hematocrit (blood only) 31.8 % (37-47); Hemoglobin 10.9 g/dL (12.0-16.0); Mean Corpuscular Volume 87.6 fL (80-100); Mean Platelet Volume 9.6 fL (7.4-10.4); Platelet Count 156 K/uL (130-400); RDW Coefficient of Variation 13.9 % (11.5-14.5); Red Blood Count 3.63 M/uL (4.2-5.4); White Blood Count 9.93 K/uL (4.8-10.8)
[2019-05-13 09:16] LABS: Mean Corpuscular Hgb Conc 34.3 g/dL (32-36)
--- NOTE | 2019-05-13 15:42 | Obstetrical Progress Note ---
Date of Service May 13, 2019 Subjective doing well received one dose Cytotec FHR; CAT1 Ctx: Q 2 VE; Unchanged pt agreeable to Pitocin augmentation Results & Data Vital Signs (Past 12 Hours) Vital Signs Temp Pulse Resp BP 05/13/19 15:30 20 05/13/19 15:15 36.6 C 05/13/19 14:05 86 125/58 L 05/13/19 14:04 18 05/13/19 11:03 37 C 85 18 120/65 05/13/19 07:40 36.6 C 18 05/13/19 07:34 36.6 C 99 H 18 120/69
[2019-05-13] MEDS: LACTATED RINGER'S 1,000 ML IV PRN ×2 (16:05→17:27)
[2019-05-13] MEDS ORDERED: BUPIVACAINE 0.25% 30 ML VIAL ONE (16:28)
[2019-05-13] MEDS ORDERED: fentaNYL citrate 100 MCG/2 ML VIAL ONE (16:28)
[2019-05-13] MEDS ORDERED: fentaNYL 2MCG/ML ROPIV 1.25MG/ML 100 ML BAG EPI ONE (16:28)
[2019-05-13] MEDS ORDERED: ePHEDrine sulfate 50 MG/ML AMP ONE (16:28)
--- NOTE | 2019-05-13 16:47 | Anesthesiology Consultation ---
Date of Service May 13, 2019 Assessment & Plan (1) Encounter for pre-operative examination: Chart Review Chart Review: Acceptable Risk for Labor Epidural Consults Requested none ASA ASA2 Proposed Anesthesia Anesthesia Type: Labor Epidural Risk / Benefits Reviewed With: PT / POA / Parent / Guardian, Accepts Plan and Informed Consent Obtained History Height/Weight Height: 5 ft 7 in Weight: 110.677 kg Allergies Allergy/AdvReac Type Severity Reaction Status Date / Time Bactrim Allergy Severe SHORTNESS Verified 07/23/17 18:02 OF BREATH, blisters in mouth cephalexin Allergy Severe SHORTNESS Verified 01/18/18 10:27 OF BREATH sulfamethoxazole Allergy Severe SHORTNESS Verified 01/18/18 10:27 OF BREATH, blisters in mouth trimethoprim Allergy Severe SHORTNESS Verified 01/18/18 10:27 OF BREATH, blisters in mouth Penicillins Allergy Intermediate possible Verified 01/18/18 10:27 hives latex Allergy Unknown red bumpy Verified 01/18/18 10:27 skin midazolam AdvReac Intermediate ITCHY Verified 01/18/18 10:27 oxycodone AdvReac Mild Drowsy Verified 05/13/19 07:46 vancomycin AdvReac Mild ITCHING,FLUSHING, Verified 01/18/18 10:27 ?SREEDHAR SYNDROME Medications Home Medications Medication Instructions Recorded Confirmed Last Taken vit-iron fum-folic ac 1 tab PO DAILY 05/13/19 05/13/19 1 Day Ago [ Vitamin] ~05/12/19 valacyclovir [Valtrex] 500 mg PO DAILY 05/13/19 05/13/19 1 Day Ago ~05/12/19 Active Medications Generic Name Dose Route Start Last Admin Trade Name Mckinley PRN Reason Stop Dose Admin Lactated Ringer's 1,000 mls @ 125 mls/hr 05/13/19 08:34 05/13/19 16:30 Lr IV 05/15/19 08:33 999 mls/hr .Q8H PRN Infusion L&D Protocol Protocol Oxytocin 30 units in 500 mls @ 2 mls/hr 05/13/19 15:43 05/13/19 16:05 Pitocin IV 05/15/19 15:42 0.12 units/hr .Q24H PRN 2 mls/hr Labor Induction/Augmentation Administration Protocol 0.12 UNITS/HR Misoprostol 50 mcg 05/13/19 08:45 05/13/19 08:54 Cytotec PO 06/12/19 08:44 50 mcg ONCE CORY Administration Past Medical History Medical History Chronic migraine 5-8 per year Erythema multiforme Hemorrhage following tonsillectomy and adenoidectomy hx at age 10 History of anxiety History of depression History of IBS History of MRSA infection negative culture x2 in 2007 Exercise / Class Metabolic Activity II 4-5 Yardwork/Stairs/Walk up hill Past Family History Family History Other No significant family history Past Surgical History Surgical History H/O arthroscopy of left knee surgery 2006 History of removal of ovarian cyst Past Anesthesia History No Hx of Anesthesia Complications and No Family Hx of Anesthesia Complications History of PONV No Hx of PONV and No Hx of Motion Sickness Social History Smoking Status: Never smoker Hx Alcohol Use: No Hx Substance Use: No substance use type: does not use Physical Exam Vital Signs Last Vital Signs Temp 97.9 F 05/13/19 15:15 Pulse 88 05/13/19 16:44 Resp 20 05/13/19 15:30 BP 121/63 05/13/19 16:25 Pulse Ox 99 05/13/19 16:44 ENMT Mouth: no dentition abnormality Thyromental Distance: > or= 3.5 Finger Breadths Mallampati Class: II Neck normal visual inspection Respiratory normal respiratory effort Auscultation: lungs clear to auscultation bilaterally Cardiovascular Rate/Rhythm: regular rate and regular rhythm Testing Laboratory Results 05/13/19 08:57
[2019-05-13] MEDS ORDERED: NALBUPHINE HCL INJ 10 MG/ML AMP IV PRN (17:06)
[2019-05-13] MEDS ORDERED: ePHEDrine sulfate 50 MG/ML AMP IV PRN (17:06)
[2019-05-13] MEDS ORDERED: NALOXONE HCL 0.4 MG/1 ML VIAL/CARP IV PRN (17:06)
[2019-05-13] MEDS ORDERED: DiphenhydrAMINE HCL 50 MG/ML VIAL IV PRN (17:06)
[2019-05-13] MEDS ORDERED: NALOXONE HCL 1 MG in SODIUM CHLORIDE 0.9% 1000ML 1,000 ML IV PRN (17:06)
[2019-05-13] MEDS ORDERED: ONDANSETRON INJ 2 MG/ML 2 ML VIAL IV PRN (17:06)
[2019-05-13] MEDS ORDERED: fentaNYL 2MCG/ML ROPIV 1.25MG/ML 100 ML BAG EPI PRN (17:06)
--- NOTE | 2019-05-13 21:29 | Obstetrical Progress Note ---
Date of Service May 13, 2019 Subjective Pt doing well FHR; CAT1 Ctx 2-3mins VE; Unchanged On Pitocin AROM- clear anticipate VD Results & Data Vital Signs (Past 12 Hours) Vital Signs Temp Pulse Resp BP Pulse Ox 05/13/19 21:26 73 132/70 05/13/19 21:24 81 98 05/13/19 21:19 68 97 05/13/19 21:14 70 97 05/13/19 21:10 75 130/77 05/13/19 21:09 77 98 05/13/19 21:04 70 97 05/13/19 21:00 16 05/13/19 20:59 69 98 05/13/19 20:57 71 128/76 05/13/19 20:54 81 97 05/13/19 20:49 71 98 05/13/19 20:45 20 05/13/19 20:44 88 97 05/13/19 20:40 74 143/73 H 05/13/19 20:39 71 98 05/13/19 20:34 76 98 05/13/19 20:30 18 05/13/19 20:29 83 99 05/13/19 20:26 64 139/66 05/13/19 20:24 65 97 05/13/19 20:19 66 97 05/13/19 20:14 72 97 05/13/19 20:10 58 L 135/66 05/13/19 20:09 69 98 05/13/19 20:04 65 98 05/13/19 20:00 18 05/13/19 19:59 68 97 05/13/19 19:55 70 134/63 05/13/19 19:54 75 96 05/13/19 19:49 67 96 05/13/19 19:44 73 100 05/13/19 19:40 75 123/56 L 05/13/19 19:39 70 98 05/13/19 19:34 72 98 05/13/19 19:30 20 05/13/19 19:29 68 98 05/13/19 19:25 71 133/67 05/13/19 19:24 70 99 05/13/19 19:19 74 99 05/13/19 19:14 72 99 05/13/19 19:10 72 122/60 05/13/19 19:09 70 97 05/13/19 19:04 65 98 02/06/20 19:00 37.3 C 18 05/13/19 18:59 97 H 99 05/13/19 18:55 68 131/65 05/13/19 18:54 73 98 05/13/19 18:49 68 98 05/13/19 18:44 77 99 05/13/19 18:40 87 129/67 05/13/19 18:39 70 98 05/13/19 18:34 80 100 05/13/19 18:30 20 05/13/19 18:29 76 98 05/13/19 18:25 75 126/71 05/13/19 18:24 72 98 05/13/19 18:19 72 98 05/13/19 18:14 75 98 05/13/19 18:11 80 125/73 05/13/19 18:09 81 98 05/13/19 18:04 92 H 97 05/13/19 17:59 71 97 05/13/19 17:56 67 130/73 05/13/19 17:54 69 97 05/13/19 17:49 70 97 05/13/19 17:44 70 98 05/13/19 17:40 76 134/72 05/13/19 17:39 79 99 05/13/19 17:34 82 98 05/13/19 17:30 20 05/13/19 17:29 86 99 05/13/19 17:25 77 133/72 05/13/19 17:24 83 99 05/13/19 17:19 77 99 05/13/19 17:14 82 98 05/13/19 17:09 87 137/77 99 05/13/19 17:07 97 H 132/79 05/13/19 17:05 91 H 131/80 05/13/19 17:04 83 99 05/13/19 17:03 98 H 128/71 05/13/19 17:01 94 H 130/64 05/13/19 16:59 90 131/69 99 05/13/19 16:57 96 H 126/72 05/13/19 16:54 94 H 100 05/13/19 16:50 90 124/84 05/13/19 16:49 102 H 100 05/13/19 16:45 20 05/13/19 16:44 88 99 05/13/19 16:39 91 H 99 05/13/19 16:25 76 121/63 05/13/19 15:30 20 05/13/19 15:15 36.6 C 20 05/13/19 14:05 86 125/58 L 05/13/19 14:04 18 05/13/19 11:03 37 C 85 18 120/65
[2019-05-13] MEDS ORDERED: Nursing to Pharmacy Communication ONE (22:44)
[2019-05-14] MEDS ORDERED: METHYLERGONOVINE MALEATE 0.2 MG/ML AMP ONE (00:08)
[2019-05-14] MEDS ORDERED: BENZOCAINE 20% AER SPR 82.5 GM CAN EXT PRN (00:26)
[2019-05-14] MEDS ORDERED: DIPHTHERIA/TETANUS/PERTUSSIS 0.5 ML SYR/VIAL IM ONE (00:26)
[2019-05-14] MEDS ORDERED: bisacodyL 10 MG SUPP PR PRN (00:26)
[2019-05-14] MEDS ORDERED: HYDROCORTISONE ACETATE 25 MG SUPP PR PRN (00:26)
[2019-05-14] MEDS ORDERED: OXYCODONE/ACETAMINOPHEN 5mg/325mg TAB PO PRN (00:26)
[2019-05-14] MEDS ORDERED: SUPERCREAM 0.870% 15 GM JAR EXT PRN (00:26)
[2019-05-14] MEDS ORDERED: OXYTOCIN 30 UNITS/500 ML BAG IV PRN (00:26)
[2019-05-14] MEDS ORDERED: ACETAMINOPHEN 325 MG TAB PO PRN (00:26)
[2019-05-14] MEDS ORDERED: miSOPROStoL 200 MCG TAB PR ONE (00:26)
[2019-05-14] MEDS ORDERED: ACETAMINOPHEN W/CODEINE #3 1 TAB PO PRN (00:26)
[2019-05-14] MEDS ORDERED: METHYLERGONOVINE MALEATE 0.2 MG/ML AMP IM ONE (00:26)
[2019-05-14] MEDS: IBUPROFEN 600 MG TAB PO PRN ×4 (03:38→20:22)
--- NOTE | 2019-05-14 08:06 | Delivery Summary ---
DATE OF OPERATION: 05/13/2019 The patient delivered a live infant female in left occiput anterior presentation. There was no nuchal cord. Infant was delivered, placed on mother's abdomen. Cord was clamped and cut after 1 minute. Cord blood was obtained. Placenta spontaneously delivered. Inspection of the placenta shows a normal gross looking placenta. Estimated blood loss is 400 mL. Inspection of the perineum shows a second-degree midline laceration which was repaired with Vicryl in layers. Rectal exam post repair showed good sphincter tone. All instruments were removed from the vagina including sponges, needles and retractors and accounted for x2. Baby and mother are doing well. I attest to the content of the Intraoperative Record and any orders documented therein. Any exception s are noted below.
[2019-05-14] MEDS: FERROUS SULFATE 325 MG TAB PO SCH (08:43)
[2019-05-14] MEDS: DOCUSATE SODIUM 100 MG CAP PO SCH ×2 (08:43→20:17)
[2019-05-14] MEDS: PRENATAL VITAMIN 1 TAB PO SCH (08:43)
--- NOTE | 2019-05-14 08:52 | Obstetrical Progress Note ---
Date of Service May 14, 2019 Subjective doing well tolerating diet out of bed Physical Exam Constitutional: WD/WN, vitals as above comfortable Gastrointestinal (Abdomen): soft abdomen fundus firm no edema neg Tiffanie's tent d/c in AM Results & Data Vital Signs (Past 12 Hours) Vital Signs Temp Pulse Pulse Resp BP BP Pulse Ox 05/14/19 03:35 37.1 C 72 16 125/74 05/14/19 02:27 106 H 134/86 05/14/19 02:25 37.0 C 18 05/14/19 02:10 79 123/65 05/14/19 01:55 81 18 118/56 L 05/14/19 01:25 67 124/61 05/14/19 01:10 77 125/59 L 05/14/19 00:55 84 122/58 L 05/14/19 00:40 102 H 129/67 05/14/19 00:25 36.9 C 85 18 125/66 05/14/19 00:24 83 98 05/14/19 00:19 88 98 05/14/19 00:14 79 97 05/14/19 00:10 78 131/70 05/14/19 00:09 79 96 05/14/19 00:04 74 98 05/14/19 00:00 18 05/13/19 23:59 118 H 82 L 05/13/19 23:56 89 133/86 05/13/19 23:54 97 H 97 05/13/19 23:49 96 H 98 05/13/19 23:47 102 H 94 05/13/19 23:44 101 H 99 05/13/19 23:40 72 112/59 L 05/13/19 23:39 77 97 05/13/19 23:34 86 98 05/13/19 23:32 114 H 91 05/13/19 23:30 18 05/13/19 23:29 89 97 05/13/19 23:26 70 137/78 05/13/19 23:24 73 96 05/13/19 23:19 83 98 05/13/19 23:14 74 97 05/13/19 23:10 81 135/70 05/13/19 23:09 73 97 05/13/19 23:04 80 97 05/13/19 23:01 36.9 C 18 05/13/19 23:00 16 05/13/19 22:59 72 97 05/13/19 22:55 66 140/72 05/13/19 22:54 71 95 05/13/19 22:49 67 96 05/13/19 22:44 73 97 05/13/19 22:40 90 123/79 05/13/19 22:39 76 98 05/13/19 22:34 67 97 05/13/19 22:30 20 05/13/19 22:29 69 98 05/13/19 22:25 66 135/80 05/13/19 22:24 73 97 05/13/19 22:19 71 98 05/13/19 22:14 77 98 05/13/19 22:10 76 133/69 05/13/19 22:09 73 97 05/13/19 22:04 64 97 05/13/19 22:00 18 05/13/19 21:59 70 98 05/13/19 21:55 66 127/68 05/13/19 21:54 66 97 05/13/19 21:49 84 97 05/13/19 21:44 87 98 05/13/19 21:41 69 130/71 05/13/19 21:39 77 98 05/13/19 21:34 78 97 05/13/19 21:30 37.0 C 18 05/13/19 21:29 78 97 05/13/19 21:26 73 132/70 05/13/19 21:24 81 98 05/13/19 21:19 68 97 05/13/19 21:14 70 97 05/13/19 21:10 75 130/77 05/13/19 21:09 77 98 05/13/19 21:04 70 97 05/13/19 21:00 16 05/13/19 20:59 69 98 05/13/19 20:57 71 128/76 05/13/19 20:54 81 97 Laboratory Results Laboratory Results - last 48 hr 05/13/19 08:57 WBC 9.93 RBC 3.63 L Hgb 10.9 L Hct 31.8 L MCV 87.6 MCH 30.0 MCHC 34.3 RDW Std Deviation 44.0 RDW Coeff of [place] 13.9 Plt Count 156 MPV 9.6
--- NOTE | 2019-05-14 09:34 | Anesthesia Procedure Note ---
Date of Service May 14, 2019 Anesthesia Post Epidural Note Vital Signs Vital Signs: Temp Pulse Resp BP Pulse Ox 37.1 C 72 16 125/74 98 05/14/19 03:35 05/14/19 03:35 05/14/19 03:35 05/14/19 03:35 05/14/19 00:24 Pain Intensity Lower Abdomen: Pain Intensity: 4 Notes Mental Status: alert / awake / arousable and participated in evaluation Nausea / Vomiting: adequately controlled Pain: adequately controlled Airway Patency, RR, SpO2: stable & adequate BP & HR: stable & adequate Hydration State: stable & adequate Neuraxial Anesthesia: was administered and sensory block is resolving Anesthetic Complications: no major complications apparent and Pt Satisfied with anesthetic care Epidural: Removed without complications and With tip intact
[2019-05-14] MEDS ORDERED: OXYTOCIN 20 UNITS in LACTATED RINGER'S 1,000 ML IV SCH (20:45)
[2019-05-15 07:06] LABS: Hematocrit (blood only) 27.6 % (37-47); Hemoglobin 9.3 g/dL (12.0-16.0); Mean Corpuscular Hemoglobin 30.1 pg (25-34); Mean Corpuscular Hgb Conc 33.7 g/dL (32-36); Mean Corpuscular Volume 89.3 fL (80-100); Mean Platelet Volume 9.9 fL (7.4-10.4); Platelet Count 144 K/uL (130-400); RDW Coefficient of Variation 14.3 % (11.5-14.5); RDW Standard Deviation 45.9 fL (36.4-46.3); Red Blood Count 3.09 M/uL (4.2-5.4)
[2019-05-15] MEDS: DOCUSATE SODIUM 100 MG CAP PO SCH (07:44)
[2019-05-15] MEDS: FERROUS SULFATE 325 MG TAB PO SCH (07:44)
[2019-05-15] MEDS: IBUPROFEN 600 MG TAB PO PRN (07:44)
[2019-05-15] MEDS: PRENATAL VITAMIN 1 TAB PO SCH (07:44)
--- NOTE | 2019-05-15 09:48 | Obstetrical Progress Note ---
Date of Service May 15, 2019 Subjective doing well ambulating passing gas tolerating diet Physical Exam Constitutional: WD/WN, vitals as above comfortable abdomen soft fundus firm no edema neg Tiffanie's for d/c Results & Data Vital Signs (Past 12 Hours) Vital Signs 05/13/19 05/15/19 08:57 06:04 WBC 9.93 9.70 RBC 3.63 L 3.09 L Hgb 10.9 L 9.3 L Hct 31.8 L 27.6 L MCV 87.6 89.3 MCH 30.0 30.1 MCHC 34.3 33.7 RDW Std Deviation 44.0 45.9 RDW Coeff of [place] 13.9 14.3 Plt Count 156 144 MPV 9.6 9.9 Temp Pulse Resp BP 05/15/19 08:05 36.6 C 77 18 119/76 05/14/19 23:00 37.0 C 80 18 130/78
[2019-05-15] MEDS ORDERED: bisacodyL 5 MG TABEC PO SCH (20:00)
== END 2019-05-15 11:05 | disposition home or self-care (01) | DRG 807 ==
LOC: 4S1 07:21 → 4S2 05-14 02:40

== ENCOUNTER 2019-05-17 15:19 | Inpatient (IN) ==
[2019-05-17] MEDS ORDERED: SODIUM CHLORIDE 0.9% 1000ML 2,000 ML IV SCH (15:45)
[2019-05-17 16:05] LABS: Basophils # (auto) 0.01 K/uL (0-0.2); Basophils % (auto) 0.1 %; Hemoglobin 9.8 g/dL (12.0-16.0); Immature Granulocytes # (auto) 0.04 K/uL (0.00-0.02); Immature Granulocytes % (auto) 0.4 %; Lymphocytes # (auto) 0.57 K/uL (1.2-3.4); Lymphocytes % (auto) 5.8 %; Mean Corpuscular Hemoglobin 30.2 pg (25-34); Mean Corpuscular Hgb Conc 33.8 g/dL (32-36); Mean Corpuscular Volume 89.2 fL (80-100); Mean Platelet Volume 9.2 fL (7.4-10.4); Monocytes # (auto) 0.42 K/uL (0.11-0.59); Monocytes % (auto) 4.3 %; Neutrophils # (auto) 8.77 K/uL (1.4-6.5); Neutrophils % (auto) 89.4 %; Nucleated RBC # (auto) 0.02 K/uL (0-0); Nucleated RBC % (auto) 0.2 %; Platelet Count 139 K/uL (130-400); RDW Coefficient of Variation 14.3 % (11.5-14.5); Red Blood Count 3.25 M/uL (4.2-5.4); White Blood Count 9.81 K/uL (4.8-10.8)
[2019-05-17] MEDS ORDERED: IBUPROFEN 800 MG TAB PO STA (16:08)
--- NOTE | 2019-05-17 16:14 | XRay Report ---
XR chest 1V portable HISTORY: 28 years-old Female fever, cough acute cough with fever COMPARISON: Chest radiograph 01/18/2018 TECHNIQUE: Portable AP view of the chest FINDINGS: Cardiomediastinal and hilar silhouettes are within normal limits. There is no pneumothorax, pleural e ffusion, focal airspace consolidation or overt pulmonary edema. Bones of the chest appear grossly int act. IMPRESSION: No acute process. ACT 112: Negative or not required by law. The above report was generated using voice recognition software. It may contain grammatical, syntax o r spelling errors. Electronically signed by: Sreekanth Watters M.D. 05/17/2019 4:12 PM
[2019-05-17 16:16] LABS: Prothrombin Time 9.8 Seconds (9.0-12.0)
[2019-05-17] MEDS ORDERED: CLINDAMYCIN 900 MG in DEXTROSE 5% 50 ML IV ONE (16:17)
[2019-05-17 16:22] LABS: Albumin Level 2.6 gm/dl (3.4-5.0); BUN Creatinine Ratio 9.5 (10-20); Calcium 8.7 mg/dl (8.5-10.1); Creatinine Clr Calc Pharmacy 136.1 ml/min; Est GFR (African American) 116.4; Est GFR (Non-African American) 100.5; Potassium 3.3 mmol/L (3.5-5.1)
[2019-05-17 16:25] LABS: Albumin Globulin Ratio 0.7 (0.9-2); Bilirubin,Total 0.5 mg/dl (0.2-1); Globulin 3.8 gm/dl (2.5-4.0); Total Protein 6.4 gm/dl (6.4-8.2)
[2019-05-17 16:41] LABS: Influenza A virus by PCR Neg for Influ A (Neg); Influenza B virus by PCR Neg for Influ B (Neg)
--- NOTE | 2019-05-17 16:58 | Electrocardiogram Report ---
Test Reason : Blood Pressure : / mmHG Vent. Rate : 109 BPM Atrial Rate : 109 BPM P-R Int : 128 ms QRS Dur : 084 ms QT Int : 288 ms P-R-T Axes : 044 062 027 degrees QTc Int : 387 ms Sinus tachycardia Otherwise normal ECG When compared with ECG of 18-JAN-2018 09:02, No significant change was found Confirmed by Ruperto Johnson ([id number]) on 05/17/2019 4:57:27 PM Referred By: ED Confirmed By:Ruperto Johnson
--- NOTE | 2019-05-17 17:16 | Ultrasound Report ---
US pelvic complete HISTORY: 28 years-old Female 3 days post part, fever, ?retained fever COMPARISON: None TECHNIQUE: Multiple real-time sonographic images of the pelvic structures were obtained to the abdomi nal assessing grayscale appearance, color and spectral flow FINDINGS: Enlarged heterogeneous post gravid uterus, 18.3 x 7.7 x 12.2 cm. No myometrial mass lesions identifie d. Endometrium measures up to 2.7 cm in thickness and is echogenic. Heterogeneity of the endometrium within the lower uterine segment is suggestive of hemorrhagic debris. No definitive retained products of conception. Echogenic foci with dirty shadowing compatible with air. Right ovary not visualized. Left ovary measures 2.8 x 5.3 x 1.7 cm and is unremarkable with arterial inflow and venous outflow. There is a hypoechoic 1.6 x 1.3 x 1.7 cm focus within the left adnexum sug gestive of an exophytic follicle versus paraovarian cyst. IMPRESSION: 1. Heterogeneously thickened endometrium is likely within normal limits considering status . There is however debris within the lower uterine segment endometrial canal with scattered foci of a ir. Findings may be expected to physiologic changes related to recent delivery, however gas-forming o rganism associated with endometritis is also within the differential. Follow-up recommended. ACT 112: Negative or not required by law. The above report was generated using voice recognition software. It may contain grammatical, syntax o r spelling errors. Electronically signed by: Sreekanth Watters M.D. 05/17/2019 5:14 PM
[2019-05-17] MEDS ORDERED: GENTAMICIN SULFATE IV STA (17:42)
[2019-05-17] MEDS ORDERED: DEXTROSE 5% IV STA (17:42)
[2019-05-17 17:44] LABS: Appearance Urine Clear (Clear); Bacteria Urine Automated Negative (Negative); Bilirubin Urine Negative (Negative); Blood Urine 2+ (Negative); Color Urine Yellow; Epithelial Cell Urine Auto 20-30 /lpf (0-5); Glucose Urine UA Negative (Negative); Ketones Urine 2+ (Negative); Leukocyte Esterase Urine 1+ (Negative); Nitrite Urine Negative (Negative); Protein Urine Negative (Negative); Urobilinogen Urine Negative (Negative)
[2019-05-17] MEDS ORDERED: POLYETHYLENE (MIRALAX) 17 GM PACK PO PRN (17:57)
[2019-05-17] MEDS ORDERED: ONDANSETRON INJ 2 MG/ML 2 ML VIAL IV PRN (17:57)
[2019-05-17] MEDS ORDERED: ALUMINUM/MAGNESIUM/SIMETH (MAALOX MAX) 30 ML UDC PO PRN (17:57)
[2019-05-17] MEDS ORDERED: MAGNESIUM HYDROXIDE SUSP 30 ML UDC PO PRN (17:57)
--- NOTE | 2019-05-17 18:00 | Emergency Department Note ---
Entered by Fabricio Carrera acting as a scribe for Ike Marin M.D. History of Present Illness General Chief complaint: Fever Stated complaint: 104 FEVER, PELVIC PAIN, 3 DAYS POST Time Seen by Provider: 05/17/19 15:38 Source: patient Limitations: no limitations History of Present Illness Onset (ago): day(s) (last night) Location: head Pain Consistency: + constant Maximum Pain Intensity: 5 Quality: + constant Associated symptoms: + denies other symptoms (urinary symptoms, nausea, trouble breathing), + fever/chills, + headaches and + other (vaginal bleeding, flashes of light, neck pain, ) Treatments prior to arrival: other (Tylenol and ibuprofen) The patient is a 28 year old female who presents to the Emergency Room with complaints of a constant fever starting last night. The patient states she had a vaginal delivery 3 days ago. She states she her vaginal bleeding has started to taper off. She states she had some vaginal bleeding clots today. She states last night she had a fever and chills. She notes her fever was 103 today. She states she took ibuprofen at 1000 today. She states she called OB and they recommended she try to express her breasts. She states she could not get anything out. She notes she took Tylenol at 1400 today. She states she has been having headaches, neck pain, and abdominal pain. She notes she has been seeing flashes of light. The patient denies having urinary symptoms, nausea, and trouble breathing. She states she has not produced a bowel movement for 4 days. She states she has had cold symptoms for a week and half. She notes she did not eat much today. She notes she had an epidural. Home Medications Home Medications Medication Instructions Recorded Confirmed Type Vitamin 1 tab PO HS 05/13/19 05/17/19 History acetaminophen [Tylenol Extra 500 mg PO Q6H PRN 05/17/19 05/17/19 History Strength] ibuprofen 200 mg PO Q6H PRN 05/17/19 05/17/19 History Allergies Allergy/AdvReac Type Severity Reaction Status Date / Time Bactrim Allergy Severe SHORTNESS Verified 07/23/17 18:02 OF BREATH, blisters in mouth cephalexin Allergy Severe SHORTNESS Verified 05/17/19 17:48 OF BREATH sulfamethoxazole Allergy Severe SHORTNESS Verified 05/17/19 17:48 OF BREATH, blisters in mouth trimethoprim Allergy Severe SHORTNESS Verified 05/17/19 17:48 OF BREATH, blisters in mouth Penicillins Allergy Intermediate possible Verified 05/17/19 17:48 hives latex Allergy Unknown red bumpy Verified 05/17/19 17:48 skin midazolam AdvReac Intermediate ITCHY Verified 05/17/19 17:48 oxycodone AdvReac Mild Drowsy Verified 05/17/19 17:48 vancomycin AdvReac Mild ITCHING,FLUSHING, Verified 05/17/19 17:48 ?SREEDHAR SYNDROME Past Med/Surg History Medical History Chronic migraine 5-8 per year Erythema multiforme Hemorrhage following tonsillectomy and adenoidectomy hx at age 10 History of anxiety History of depression History of IBS History of MRSA infection negative culture x2 in 2007 Surgical History H/O arthroscopy of left knee surgery 2006 History of removal of ovarian cyst Family History Other No significant family history Social History Preferred Language: Turkmen Communication Ability: Effective 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 and A total of 10 systems reviewed and were otherwise negative Physical Exam Vital Signs Vital Signs - 24 hr 05/17/19 15:31 05/17/19 17:48 Temperature 40.0 C H 37.6 C H Temperature Source Oral Oral Pulse Rate 116 H Pulse Rate [Left] 118 H Pulse Rhythm [Left] Regular Pulse Strength [Left] Normal Respiratory Rate 24 17 Respiratory Effort / Characteristics Non-Labored Non-Labored Respiratory Depth Normal Normal Respiratory Pattern Regular Blood Pressure 140/75 Blood Pressure [Left Arm] 166/86 H Blood Pressure Mean 96 Blood Pressure Mean [Left Arm] 112 Pulse Oximetry 100 98 Oxygen Delivery Method Room Air Room Air Sepsis Recent Fever Within 48 Hours Yes Sepsis New/Unexplained Change in Mental Status No Sepsis Action Taken by Nursing Physician Notified GENERAL: Awake, alert, mildly fatigued-appearing, in no distress HENT: Normocephalic, atraumatic. EYES: Normal conjunctiva. Sclera non-icteric. NECK: Supple. No nuchal rigidity. Mild pain with neck flexion. RESPIRATORY: Clear to auscultation. No wheezes. Normal respiratory effort. CARDIAC: Tachycardic rate. Normal rhythm. Extremities warm and well perfused. GI: Soft, non-distended. No rebound or guarding. No masses. Minimal lower abdominal tenderness. RECTAL/: Deferred. MUSCULOSKELETAL: Atraumatic. Chest examination reveals no tenderness. LOWER EXTREMITIES: Calves are equal size bilaterally and non-tender. No edema NEURO: Normal sensorium. No sensory or motor deficits noted. No facial droop. SKIN: Warm and dry. No jaundice noted. Course Course 153: The patient was evaluated in room A2, and a complete history and physical examination were performed. 0: I spoke to Dr. Stephenson - [employer], regarding the patient. She states she will come down to evaluate the patient and admit the patient. Administered Medications Discontinued Medications Sodium Chloride (Nss 1000ml) 2,000 mls @ 999 mls/hr IV .Q2H1M CORY Stop: 05/17/19 17:45 Last Admin: 05/17/19 15:59 Dose: 999 mls/hr Documented by: [id number] Clindamycin Phosphate 900 mg/ (Dextrose) 56 mls @ 112 mls/hr IV ONE ONE Stop: 05/17/19 16:46 Last Admin: 05/17/19 17:47 Dose: 112 mls/hr Documented by: [id number] Ibuprofen (Motrin) 800 mg PO NOW STA Stop: 05/17/19 16:09 Last Admin: 05/17/19 16:13 Dose: 800 mg Documented by: [id number] Medical Decision Making Differential Diagnosis Differential diagnosis: Etiologies such as viral syndrome, otitis, pharyngitis, pneumonia, influenza, meningitis, urinary tract infection, sepsis, bacteremia, as well as others were entertained. Medical Records Attestation: I reviewed the patient's medical records. Home Medications Current Medication List: was personally reviewed by me Laboratory Data Attestation: I reviewed the patient's lab results. Result diagrams: 05/17/19 15:50 05/17/19 15:50 Lab Results 05/17/19 05/17/19 05/17/19 Range/Units 15:50 15:50 15:50 WBC 9.81 (4.8-10.8) K/uL RBC 3.25 L (4.2-5.4) M/uL Hgb 9.8 L (12.0-16.0) g/dL Hct 29.0 L (37-47) % MCV 89.2 (80-100) fL MCH 30.2 (25-34) pg MCHC 33.8 (32-36) g/dL RDW Std Deviation 46.0 (36.4-46.3) fL RDW Coeff of [place] 14.3 (11.5-14.5) % Plt Count 139 (130-400) K/uL MPV 9.2 (7.4-10.4) fL Immature Gran % (Auto) 0.4 % Neut % (Auto) 89.4 % Lymph % (Auto) 5.8 % Stark % (Auto) 4.3 % Eos % (Auto) 0.0 % Baso % (Auto) 0.1 % Immature Gran # (Auto) 0.04 H (0.00-0.02) K/uL Neut # (Auto) 8.77 H (1.4-6.5) K/uL Lymph # (Auto) 0.57 L (1.2-3.4) K/uL Stark # (Auto) 0.42 (0.11-0.59) K/uL Eos # (Auto) 0.00 (0-0.5) K/uL Baso # (Auto) 0.01 (0-0.2) K/uL Absolute Nucleated RBC 0.02 H (0-0) K/uL Nucleated RBC % (auto) 0.2 % PT 9.8 (9.0-12.0) Seconds INR 1.0 (0.9-1.1) Sodium 140 (136-145) mmol/L Potassium 3.3 L (3.5-5.1) mmol/L Chloride 108 H (98-107) mmol/L Carbon Dioxide 26 (21-32) mmol/L Anion Gap 6.0 (3-11) BUN 7 (7-18) mg/dl Creatinine 0.79 (0.6-1.2) mg/dl Est Cr Clr Drug Dosing 136.1 ml/min Est GFR ( Amer) 116.4 Est GFR (Non-Af Amer) 100.5 BUN/Creatinine Ratio 9.5 L (10-20) Glucose 94 (70-99) mg/dl Lactate (0.4-2.0) mmol/L Calcium 8.7 (8.5-10.1) mg/dl Total Bilirubin 0.5 (0.2-1) mg/dl AST 13 L (15-37) U/L ALT 18 (12-78) U/L Alkaline Phosphatase 109 (45-117) U/L Total Protein 6.4 (6.4-8.2) gm/dl Albumin 2.6 L (3.4-5.0) gm/dl Globulin 3.8 (2.5-4.0) gm/dl Albumin/Globulin Ratio 0.7 L (0.9-2) Procalcitonin (0-0.5) ng/ml Urine Color Urine Appearance (Clear) Urine pH (4.5-7.5) Ur Specific [place] (1.000-1.030) Urine Protein (Negative) Urine Glucose (UA) (Negative) Urine Ketones (Negative) Urine Blood (Negative) Urine Nitrite (Negative) Urine Bilirubin (Negative) Urine Urobilinogen (Negative) Ur Leukocyte Esterase (Negative) Urine WBC (Auto) (0-5) /hpf Urine RBC (Auto) (0-4) /hpf U Hyaline Cast (Auto) (0-5) /lpf U Epithel Cells (Auto) (0-5) /lpf Urine Bacteria (Auto) (Negative) Influenza Type A (PCR) (Neg) Influenza Type B (PCR) (Neg) 05/17/19 05/17/19 05/17/19 Range/Units 15:50 15:50 16:00 WBC (4.8-10.8) K/uL RBC (4.2-5.4) M/uL Hgb (12.0-16.0) g/dL Hct (37-47) % MCV (80-100) fL MCH (25-34) pg MCHC (32-36) g/dL RDW Std Deviation (36.4-46.3) fL RDW Coeff of [place] (11.5-14.5) % Plt Count (130-400) K/uL MPV (7.4-10.4) fL Immature Gran % (Auto) % Neut % (Auto) % Lymph % (Auto) % Stark % (Auto) % Eos % (Auto) % Baso % (Auto) % Immature Gran # (Auto) (0.00-0.02) K/uL Neut # (Auto) (1.4-6.5) K/uL Lymph # (Auto) (1.2-3.4) K/uL Stark # (Auto) (0.11-0.59) K/uL Eos # (Auto) (0-0.5) K/uL Baso # (Auto) (0-0.2) K/uL Absolute Nucleated RBC (0-0) K/uL Nucleated RBC % (auto) % PT (9.0-12.0) Seconds INR (0.9-1.1) Sodium (136-145) mmol/L Potassium (3.5-5.1) mmol/L Chloride (98-107) mmol/L Carbon Dioxide (21-32) mmol/L Anion Gap (3-11) BUN (7-18) mg/dl Creatinine (0.6-1.2) mg/dl Est Cr Clr Drug Dosing ml/min Est GFR ( Amer) Est GFR (Non-Af Amer) BUN/Creatinine Ratio (10-20) Glucose (70-99) mg/dl Lactate 1.0 (0.4-2.0) mmol/L Calcium (8.5-10.1) mg/dl Total Bilirubin (0.2-1) mg/dl AST (15-37) U/L ALT (12-78) U/L Alkaline Phosphatase (45-117) U/L Total Protein (6.4-8.2) gm/dl Albumin (3.4-5.0) gm/dl Globulin (2.5-4.0) gm/dl Albumin/Globulin Ratio (0.9-2) Procalcitonin < 0.05 (0-0.5) ng/ml Urine Color Urine Appearance (Clear) Urine pH (4.5-7.5) Ur Specific [place] (1.000-1.030) Urine Protein (Negative) Urine Glucose (UA) (Negative) Urine Ketones (Negative) Urine Blood (Negative) Urine Nitrite (Negative) Urine Bilirubin (Negative) Urine Urobilinogen (Negative) Ur Leukocyte Esterase (Negative) Urine WBC (Auto) (0-5) /hpf Urine RBC (Auto) (0-4) /hpf U Hyaline Cast (Auto) (0-5) /lpf U Epithel Cells (Auto) (0-5) /lpf Urine Bacteria (Auto) (Negative) Influenza Type A (PCR) Neg for Influ A (Neg) Influenza Type B (PCR) Neg for Influ B (Neg) 05/17/19 Range/Units 17:19 WBC (4.8-10.8) K/uL RBC (4.2-5.4) M/uL Hgb (12.0-16.0) g/dL Hct (37-47) % MCV (80-100) fL MCH (25-34) pg MCHC (32-36) g/dL RDW Std Deviation (36.4-46.3) fL RDW Coeff of [place] (11.5-14.5) % Plt Count (130-400) K/uL MPV (7.4-10.4) fL Immature Gran % (Auto) % Neut % (Auto) % Lymph % (Auto) % Stark % (Auto) % Eos % (Auto) % Baso % (Auto) % Immature Gran # (Auto) (0.00-0.02) K/uL Neut # (Auto) (1.4-6.5) K/uL Lymph # (Auto) (1.2-3.4) K/uL Stark # (Auto) (0.11-0.59) K/uL Eos # (Auto) (0-0.5) K/uL Baso # (Auto) (0-0.2) K/uL Absolute Nucleated RBC (0-0) K/uL Nucleated RBC % (auto) % PT (9.0-12.0) Seconds INR (0.9-1.1) Sodium (136-145) mmol/L Potassium (3.5-5.1) mmol/L Chloride (98-107) mmol/L Carbon Dioxide (21-32) mmol/L Anion Gap (3-11) BUN (7-18) mg/dl Creatinine (0.6-1.2) mg/dl Est Cr Clr Drug Dosing ml/min Est GFR ( Amer) Est GFR (Non-Af Amer) BUN/Creatinine Ratio (10-20) Glucose (70-99) mg/dl Lactate (0.4-2.0) mmol/L Calcium (8.5-10.1) mg/dl Total Bilirubin (0.2-1) mg/dl AST (15-37) U/L ALT (12-78) U/L Alkaline Phosphatase (45-117) U/L Total Protein (6.4-8.2) gm/dl Albumin (3.4-5.0) gm/dl Globulin (2.5-4.0) gm/dl Albumin/Globulin Ratio (0.9-2) Procalcitonin (0-0.5) ng/ml Urine Color Yellow Urine Appearance Clear (Clear) Urine pH 7.0 (4.5-7.5) Ur Specific [place] 1.020 (1.000-1.030) Urine Protein Negative (Negative) Urine Glucose (UA) Negative (Negative) Urine Ketones 2+ H (Negative) Urine Blood 2+ H (Negative) Urine Nitrite Negative (Negative) Urine Bilirubin Negative (Negative) Urine Urobilinogen Negative (Negative) Ur Leukocyte Esterase 1+ H (Negative) Urine WBC (Auto) 10-30 H (0-5) /hpf Urine RBC (Auto) 5-10 H (0-4) /hpf U Hyaline Cast (Auto) 1-5 (0-5) /lpf U Epithel Cells (Auto) 20-30 H (0-5) /lpf Urine Bacteria (Auto) Negative (Negative) Influenza Type A (PCR) (Neg) Influenza Type B (PCR) (Neg) Imaging Data Radiologist's Impression: Radiology results as stated below per my review and the radiologist's interpretation: XR chest 1V portable HISTORY: 28 years-old Female fever, cough acute cough with fever COMPARISON: Chest radiograph 01/18/2018 TECHNIQUE: Portable AP view of the chest FINDINGS: Cardiomediastinal and hilar silhouettes are within normal limits. There is no pneumothorax, pleural effusion, focal airspace consolidation or overt pulmonary edema. Bones of the chest appear grossly intact. IMPRESSION: No acute process. ACT 112: Negative or not required by law. The above report was generated using voice recognition software. It may contain grammatical, syntax or spelling errors. Electronically signed by: Sreekanth Watters M.D. 05/17/2019 4:12 PM US pelvic complete HISTORY: 28 years-old Female 3 days post part, fever, ?retained f ever COMPARISON: None TECHNIQUE: Multiple real-time sonographic images of the pelvic structures were obtained to the abdominal assessing grayscale appearance, color and spectral flow FINDINGS: Enlarged heterogeneous post gravid uterus, 18.3 x 7.7 x 12.2 cm. No myometrial mass lesions identified. Endometrium measures up to 2.7 cm in thickness and is echogenic. Heterogeneity of the endometrium within the lower uterine segment is suggestive of hemorrhagic debris. No definitive retained products of conception. Echogenic foci with dirty shadowing compatible with air. Right ovary not visualized. Left ovary measures 2.8 x 5.3 x 1.7 cm and is unremarkable with arterial inflow and venous outflow. There is a hypoechoic 1.6 x 1.3 x 1.7 cm focus within the left adnexum suggestive of an exophytic follicle versus paraovarian cyst. IMPRESSION: 1. Heterogeneously thickened endometrium is likely within normal limits considering status. There is however debris within the lower uterine segment endometrial canal with scattered foci of air. Findings may be expected to physiologic changes related to recent delivery, however gas-forming organism associated with endometritis is also within the differential. Follow-up recommended. ACT 112: Negative or not required by law. The above report was generated using voice recognition software. It may contain grammatical, syntax or spelling errors. Electronically signed by: Sreekanth Watters M.D. 05/17/2019 5:14 PM ECG Data Attestation: I personally reviewed and interpreted this ECG as follows: Indication: + tachycardia Rate (beats per minute): 109 Rhythm: + sinus tachycardia ECG Intervals/blocks: + Normal QT-c ECG [place]: + Normal ECG ST segments: no ST depression and no ST elevation ECG Findings: no PVCs Blood Pressure Blood Pressure Findings: Elevated blood pressure Blood Pressure Disposition: further management by hospitalist TU Portillo Patient is a 28-year-old female G4, P4 status post vaginal delivery 3 days ago a t 39w and 1d presenting today complaining of some lower back and abdominal discomfort, headache and neck pain and fever. Patient endorses chills today. Symptoms developed overnight. Patient again recently . Endorses a little bit of bleeding but not a significant amount. Patient states that she was induced and gave early last week vaginally. Does states there was some delay with delivery of the placenta. Small perineal second-degree laceration was noted at that time. Baby is doing well. Took some Tylenol and Motrin intermittently today. Patient febrile and tachycardic upon arrival. Appears slightly fatigued but quite bright-eyed. No focal neurological deficits on exam. Minimal lower abdominal tenderness. Given IV fluids and Motrin here. Broad infectious labs are ordered. Chest x-ray and transvaginal ultrasound ordered. Chest x-ray unremarkable. Flu testing was sent. Patient does not appear meningitic to me at this time. Concerned with some issue with placental delivery for possible retained products. Patient with multiple antibiotic allergies. Discussed with pharmacy. Patient was stable anemia. White count 9.8 is unchanged. Some slight hypokalemia. Renal function is stable. No evidence of liver dysfunction. Influenza is negative. Procalcitonin is undetectable. Patient again looks fairly well and I have a lower suspicion this represents acute bacterial meningitis at this point. Discussed case and ultrasound findings with international controller given the recent state. She will evaulate and plan for observation here. Again given clindamycin and gentamicin for braod coverage. Impression & Plan Sepsis, fever Discharge Plan Visit Data Chief Complaint: Fever Stated Complaint: 104 FEVER, PELVIC PAIN, 3 DAYS POST ED Provider: Ike Marin Discharge Problem: Sepsis, fever Patient Disposition: Being Evaluated by Hospitalist Forms Stand Alone Forms: My [facility] Prescriptions Prescriptions: No Action Vitamin 27 mg iron- 0.8 mg Tablet 1 tab PO HS RF: 0 acetaminophen [Tylenol Extra Strength] 500 mg Tablet 500 mg PO Q6H PRN (Reason: Fever) RF: 0 ibuprofen 200 mg Tablet 200 mg PO Q6H PRN (Reason: Fever) RF: 0 Referrals Referrals: Karen Yung MD [Primary Care Provider] - Discharge Problem: Sepsis Qualifiers: Sepsis type: sepsis due to unspecified organism Sepsis acute organ dysfunction status: unspecified Qualified Code(s): A41.9 - Sepsis, unspecified organism The scribe's documentation has been prepared under my direction and personally reviewed by me in its entirety. I confirm that the note above accurately reflects all work, treatment, procedures, and medical decision making performed by me.
[2019-05-17] MEDS ORDERED: GENTAMICIN CONSULT ACTIVE PRN (18:03)
--- NOTE | 2019-05-17 18:16 | History & Physical Report ---
Date of Service May 17, 2019 Assessment & Plan (1) fever: 28 yo s/p on 05/13, now with fever/ chills/ uterine tenderness, most likely endometritis h/o Multiple allergies, patient reports using clindamycin and Gentamycin with no reaction Plan to admit, monitor, IV Clinda/ Gentamycin D/C when afebrile fro 24 hours AAll questions were answered (2) endometritis: (3) Tenderness of uterus: History of Present Illness Chief Complaint: Fever Primary Care Provider: Karen Yung MD The patient is a 28 year old female who presents to the Emergency Room with complaints of a constant fever starting last night. The patient states she had a vaginal delivery on 05/13 evening and was discharged on 05/15. She was fine until last night. She states last night she had a fever and chills. She noted her fever was 103 this morning when she called me. I recommended to empty breasts and repeat it if it was over 100.4 then proceed to ER She states she felt better and went to her baby's appointment with afternoon and her fever came back when she came home. She states she her vaginal bleeding has started to taper off. She states she had some vaginal bleeding today but not heavy. No foul odor. She states she took ibuprofen at 1000 today. She notes she took Tylenol at 1400 today. She states she has been having headaches, neck pain, and abdominal pain. She started to have FIELDS this morning with flashes of light. No N&V/ epigastric or RUQ pain. Normal apetite. She had epidural for pain but this FIELDS is not like spinal FIELDS she has had in the past. FIELDS is much milder now, 05/17. No neck pain. The patient denies having urinary symptoms, nausea, and trouble breathing. She states she has not produced a bowel movement for 4 days. She states she has had cold symptoms for a week and half. But is is getting better. Allergies Allergy/AdvReac Type Severity Reaction Status Date / Time Bactrim Allergy Severe SHORTNESS Verified 07/23/17 18:02 OF BREATH, blisters in mouth cephalexin Allergy Severe SHORTNESS Verified 05/17/19 17:48 OF BREATH sulfamethoxazole Allergy Severe SHORTNESS Verified 05/17/19 17:48 OF BREATH, blisters in mouth trimethoprim Allergy Severe SHORTNESS Verified 05/17/19 17:48 OF BREATH, blisters in mouth Penicillins Allergy Intermediate possible Verified 05/17/19 17:48 hives latex Allergy Unknown red bumpy Verified 05/17/19 17:48 skin midazolam AdvReac Intermediate ITCHY Verified 05/17/19 17:48 oxycodone AdvReac Mild Drowsy Verified 05/17/19 17:48 vancomycin AdvReac Mild ITCHING,FLUSHING, Verified 05/17/19 17:48 ?SREEDHAR SYNDROME Home Medications Home Medications Medication Instructions Recorded Confirmed Type Vitamin 1 tab PO HS 05/13/19 05/17/19 History acetaminophen [Tylenol Extra 500 mg PO Q6H PRN 05/17/19 05/17/19 History Strength] ibuprofen 200 mg PO Q6H PRN 05/17/19 05/17/19 History Patient History Medical History Chronic migraine 5-8 per year Erythema multiforme Hemorrhage following tonsillectomy and adenoidectomy hx at age 10 History of anxiety History of depression History of IBS History of MRSA infection negative culture x2 in 2007 Surgical History H/O arthroscopy of left knee surgery 2006 History of removal of ovarian cyst Family History Other No significant family history Social History Preferred Language: Occitan Communication Ability: Effective Mannequin Decorator Required: No Beliefs That Will Affect Care: None marital status: Legally Current Living Situation: Significant Other and Other Current Living Situation Comment: S/O- Paul, 3 children and Father Feels Safe at Home: Yes Smoking Status: Never smoker Hx Alcohol Use: No Hx Substance Use: No Review of Systems All systems reviewed & are unremarkable except as noted in HPI & below + fever and + chills Physical Exam Constitutional: WD/WN, vitals as above well developed and well nourished [place], NAD Gastrointestinal (Abdomen): normal bowel sounds, soft, nontender, no hepatosplenomegaly Abd: soft, NT, fundal tenderness noted Lochia minimal with los odor Results & Data Vital Signs (Past 12 Hours) Vital Signs Temp Pulse Pulse Resp BP BP Pulse Ox 05/17/19 17:48 37.6 C H 118 H 17 166/86 H 98 05/17/19 15:31 40.0 C H 116 H 24 140/75 100 Laboratory Results Lab Results 05/17/19 05/17/19 05/17/19 Range/Units 15:50 15:50 15:50 WBC 9.81 (4.8-10.8) K/uL RBC 3.25 L (4.2-5.4) M/uL Hgb 9.8 L (12.0-16.0) g/dL Hct 29.0 L (37-47) % MCV 89.2 (80-100) fL MCH 30.2 (25-34) pg MCHC 33.8 (32-36) g/dL RDW Std Deviation 46.0 (36.4-46.3) fL RDW Coeff of [place] 14.3 (11.5-14.5) % Plt Count 139 (130-400) K/uL MPV 9.2 (7.4-10.4) fL Immature Gran % (Auto) 0.4 % Neut % (Auto) 89.4 % Lymph % (Auto) 5.8 % Story % (Auto) 4.3 % Eos % (Auto) 0.0 % Baso % (Auto) 0.1 % Immature Gran # (Auto) 0.04 H (0.00-0.02) K/uL Neut # (Auto) 8.77 H (1.4-6.5) K/uL Lymph # (Auto) 0.57 L (1.2-3.4) K/uL Story # (Auto) 0.42 (0.11-0.59) K/uL Eos # (Auto) 0.00 (0-0.5) K/uL Baso # (Auto) 0.01 (0-0.2) K/uL Absolute Nucleated RBC 0.02 H (0-0) K/uL Nucleated RBC % (auto) 0.2 % PT 9.8 (9.0-12.0) Seconds INR 1.0 (0.9-1.1) Sodium 140 (136-145) mmol/L Potassium 3.3 L (3.5-5.1) mmol/L Chloride 108 H (98-107) mmol/L Carbon Dioxide 26 (21-32) mmol/L Anion Gap 6.0 (3-11) BUN 7 (7-18) mg/dl Creatinine 0.79 (0.6-1.2) mg/dl Est Cr Clr Drug Dosing 136.1 ml/min Est GFR ( Amer) 116.4 Est GFR (Non-Af Amer) 100.5 BUN/Creatinine Ratio 9.5 L (10-20) Glucose 94 (70-99) mg/dl Lactate (0.4-2.0) mmol/L Calcium 8.7 (8.5-10.1) mg/dl Total Bilirubin 0.5 (0.2-1) mg/dl AST 13 L (15-37) U/L ALT 18 (12-78) U/L Alkaline Phosphatase 109 (45-117) U/L Total Protein 6.4 (6.4-8.2) gm/dl Albumin 2.6 L (3.4-5.0) gm/dl Globulin 3.8 (2.5-4.0) gm/dl Albumin/Globulin Ratio 0.7 L (0.9-2) Procalcitonin (0-0.5) ng/ml Urine Color Urine Appearance (Clear) Urine pH (4.5-7.5) Ur Specific Nabb (1.000-1.030) Urine Protein (Negative) Urine Glucose (UA) (Negative) Urine Ketones (Negative) Urine Blood (Negative) Urine Nitrite (Negative) Urine Bilirubin (Negative) Urine Urobilinogen (Negative) Ur Leukocyte Esterase (Negative) Urine WBC (Auto) (0-5) /hpf Urine RBC (Auto) (0-4) /hpf U Hyaline Cast (Auto) (0-5) /lpf U Epithel Cells (Auto) (0-5) /lpf Urine Bacteria (Auto) (Negative) Influenza Type A (PCR) (Neg) Influenza Type B (PCR) (Neg) 05/17/19 05/17/19 05/17/19 Range/Units 15:50 15:50 16:00 WBC (4.8-10.8) K/uL RBC (4.2-5.4) M/uL Hgb (12.0-16.0) g/dL Hct (37-47) % MCV (80-100) fL MCH (25-34) pg MCHC (32-36) g/dL RDW Std Deviation (36.4-46.3) fL RDW Coeff of [place] (11.5-14.5) % Plt Count (130-400) K/uL MPV (7.4-10.4) fL Immature Gran % (Auto) % Neut % (Auto) % Lymph % (Auto) % Story % (Auto) % Eos % (Auto) % Baso % (Auto) % Immature Gran # (Auto) (0.00-0.02) K/uL Neut # (Auto) (1.4-6.5) K/uL Lymph # (Auto) (1.2-3.4) K/uL Story # (Auto) (0.11-0.59) K/uL Eos # (Auto) (0-0.5) K/uL Baso # (Auto) (0-0.2) K/uL Absolute Nucleated RBC (0-0) K/uL Nucleated RBC % (auto) % PT (9.0-12.0) Seconds INR (0.9-1.1) Sodium (136-145) mmol/L Potassium (3.5-5.1) mmol/L Chloride (98-107) mmol/L Carbon Dioxide (21-32) mmol/L Anion Gap (3-11) BUN (7-18) mg/dl Creatinine (0.6-1.2) mg/dl Est Cr Clr Drug Dosing ml/min Est GFR ( Amer) Est GFR (Non-Af Amer) BUN/Creatinine Ratio (10-20) Glucose (70-99) mg/dl Lactate 1.0 (0.4-2.0) mmol/L Calcium (8.5-10.1) mg/dl Total Bilirubin (0.2-1) mg/dl AST (15-37) U/L ALT (12-78) U/L Alkaline Phosphatase (45-117) U/L Total Protein (6.4-8.2) gm/dl Albumin (3.4-5.0) gm/dl Globulin (2.5-4.0) gm/dl Albumin/Globulin Ratio (0.9-2) Procalcitonin < 0.05 (0-0.5) ng/ml Urine Color Urine Appearance (Clear) Urine pH (4.5-7.5) Ur Specific Nabb (1.000-1.030) Urine Protein (Negative) Urine Glucose (UA) (Negative) Urine Ketones (Negative) Urine Blood (Negative) Urine Nitrite (Negative) Urine Bilirubin (Negative) Urine Urobilinogen (Negative) Ur Leukocyte Esterase (Negative) Urine WBC (Auto) (0-5) /hpf Urine RBC (Auto) (0-4) /hpf U Hyaline Cast (Auto) (0-5) /lpf U Epithel Cells (Auto) (0-5) /lpf Urine Bacteria (Auto) (Negative) Influenza Type A (PCR) Neg for Influ A (Neg) Influenza Type B (PCR) Neg for Influ B (Neg) 05/17/19 Range/Units 17:19 WBC (4.8-10.8) K/uL RBC (4.2-5.4) M/uL Hgb (12.0-16.0) g/dL Hct (37-47) % MCV (80-100) fL MCH (25-34) pg MCHC (32-36) g/dL RDW Std Deviation (36.4-46.3) fL RDW Coeff of [place] (11.5-14.5) % Plt Count (130-400) K/uL MPV (7.4-10.4) fL Immature Gran % (Auto) % Neut % (Auto) % Lymph % (Auto) % Story % (Auto) % Eos % (Auto) % Baso % (Auto) % Immature Gran # (Auto) (0.00-0.02) K/uL Neut # (Auto) (1.4-6.5) K/uL Lymph # (Auto) (1.2-3.4) K/uL Story # (Auto) (0.11-0.59) K/uL Eos # (Auto) (0-0.5) K/uL Baso # (Auto) (0-0.2) K/uL Absolute Nucleated RBC (0-0) K/uL Nucleated RBC % (auto) % PT (9.0-12.0) Seconds INR (0.9-1.1) Sodium (136-145) mmol/L Potassium (3.5-5.1) mmol/L Chloride (98-107) mmol/L Carbon Dioxide (21-32) mmol/L Anion Gap (3-11) BUN (7-18) mg/dl Creatinine (0.6-1.2) mg/dl Est Cr Clr Drug Dosing ml/min Est GFR ( Amer) Est GFR (Non-Af Amer) BUN/Creatinine Ratio (10-20) Glucose (70-99) mg/dl Lactate (0.4-2.0) mmol/L Calcium (8.5-10.1) mg/dl Total Bilirubin (0.2-1) mg/dl AST (15-37) U/L ALT (12-78) U/L Alkaline Phosphatase (45-117) U/L Total Protein (6.4-8.2) gm/dl Albumin (3.4-5.0) gm/dl Globulin (2.5-4.0) gm/dl Albumin/Globulin Ratio (0.9-2) Procalcitonin (0-0.5) ng/ml Urine Color Yellow Urine Appearance Clear (Clear) Urine pH 7.0 (4.5-7.5) Ur Specific Nabb 1.020 (1.000-1.030) Urine Protein Negative (Negative) Urine Glucose (UA) Negative (Negative) Urine Ketones 2+ H (Negative) Urine Blood 2+ H (Negative) Urine Nitrite Negative (Negative) Urine Bilirubin Negative (Negative) Urine Urobilinogen Negative (Negative) Ur Leukocyte Esterase 1+ H (Negative) Urine WBC (Auto) 10-30 H (0-5) /hpf Urine RBC (Auto) 5-10 H (0-4) /hpf U Hyaline Cast (Auto) 1-5 (0-5) /lpf U Epithel Cells (Auto) 20-30 H (0-5) /lpf Urine Bacteria (Auto) Negative (Negative) Influenza Type A (PCR) (Neg) Influenza Type B (PCR) (Neg)
--- NOTE | 2019-05-17 21:09 | Pharmacy Report ---
Pharmacy Abx Dose Short Note - Date of Service May 17, 2019 - Assessment & Plan Assessment 28 year old F receiving Clinda 900mg IV q8h + Gent for treatment of non UTI Day # 1 of antimicrobial therapy. Pertinent PMH: post- 05/13/19, fever Plan GENT: * Received Gent 555mg (8.7mg/kg ADJ BW) IV x 1 in ED * Pharmacy ordered Random Gent/Scr with 2/11 AM labs to guide subsequent dosing. * May consider Gent 5mg/kg Adj BW IV q 24/36/48h depending on Urban-Adiel nomogram & renal function? * Will provide follow-up 2/11 AM. Pharmacy will continue to follow and will adjust dose/frequency as necessary. Thank you.
[2019-05-17] MEDS: LACTATED RINGER'S 1,000 ML IV SCH (21:10)
[2019-05-17] MEDS: ACETAMINOPHEN 325 MG TAB PO PRN (21:10)
[2019-05-17] MEDS: NON-FORMULARY MEDICATION (Prenatal Vit-Iron Fum-Folic Ac [Prenatal Vitamin] 1 TAB) PO SCH ×2 (22:15→22:17)
[2019-05-17] MEDS: IBUPROFEN 600 MG TAB PO PRN (22:16)
[2019-05-17] MEDS: PRENATAL VITAMIN 1 TAB PO SCH (22:17)
[2019-05-18] MEDS: CLINDAMYCIN 900 MG in DEXTROSE 5% 50 ML IV SCH ×3 (02:06→17:54)
[2019-05-18] MEDS: IBUPROFEN 600 MG TAB PO PRN ×4 (04:09→22:34)
[2019-05-18] MEDS: ACETAMINOPHEN 325 MG TAB PO PRN ×4 (04:51→19:40)
[2019-05-18] MEDS: LACTATED RINGER'S 1,000 ML IV SCH ×2 (04:52→13:31)
[2019-05-18 06:51] LABS: Basophils # (auto) 0.01 K/uL (0-0.2); Basophils % (auto) 0.1 %; Eosinophils # (auto) 0.01 K/uL (0-0.5); Eosinophils % (auto) 0.1 %; Hematocrit (blood only) 23.8 % (37-47); Hemoglobin 8.3 g/dL (12.0-16.0); Immature Granulocytes # (auto) 0.02 K/uL (0.00-0.02); Immature Granulocytes % (auto) 0.3 %; Lymphocytes # (auto) 0.57 K/uL (1.2-3.4); Lymphocytes % (auto) 7.8 %; Mean Corpuscular Hemoglobin 30.4 pg (25-34); Mean Corpuscular Hgb Conc 34.9 g/dL (32-36); Mean Corpuscular Volume 87.2 fL (80-100); Mean Platelet Volume 8.6 fL (7.4-10.4); Monocytes # (auto) 0.44 K/uL (0.11-0.59); Neutrophils % (auto) 85.7 %; Platelet Count 129 K/uL (130-400); RDW Coefficient of Variation 14.5 % (11.5-14.5); RDW Standard Deviation 45.5 fL (36.4-46.3); Red Blood Count 2.73 M/uL (4.2-5.4); White Blood Count 7.35 K/uL (4.8-10.8)
[2019-05-18 07:32] LABS: Creatinine Clr Calc Pharmacy 162.9 ml/min; Est GFR (African American) 137.4; Est GFR (Non-African American) 118.5
--- NOTE | 2019-05-18 08:27 | Pharmacy Report ---
Pharmacy Abx Dose Short Note - Date of Service May 18, 2019 - Assessment & Plan Assessment 28 year old F receiving gentamicin/ clindamycin for treatment of endometritis Day # 1 of antimicrobial therapy. Plan Gentamicin * Random level of 0.7 mcg/mL is therapeutic. * Continue dose of 560 mg IV every 24 hours (5 mg/kg of actual body weight which is per protocol for patients) * Order additional random levels based upon clinical picture. Some recommendations state that random levels are not needed for patients who have normal renal function and are expected to have short duration (</= 72 hours). Pharmacy will continue to follow and will adjust dose/frequency as necessary. Thank you.
[2019-05-18] MEDS: DOCUSATE SODIUM 100 MG CAP PO SCH ×2 (10:07→21:49)
--- NOTE | 2019-05-18 16:39 | Progress Note ---
Date of Service May 18, 2019 Assessment & Plan Admission and Anticipated Discharge Date Admission Date: May 17, 2019 Subjective S : pt doing well. no complaints O; VSS Afebrile on antibx Lung; CTA bilat . Hy; S1S2 R/r/r ABd; NT nD + Bs Ext; No C/C/e A/p endomyometritis on antibx stable afebrile since admission anticipate disch AM if celso continues to be afebrile Results & Data ([facility]) Vital Signs (Past 12 Hours) Vital Signs Temp Pulse Resp BP Pulse Ox 05/18/19 11:30 37.0 C 74 18 126/83 98 05/18/19 08:30 37.0 C 85 18 130/79 96
[2019-05-18] MEDS ORDERED: GENTAMICIN SULFATE 420 MG in DEXTROSE 5% 100 ML IV SCH (18:15)
[2019-05-18] MEDS ORDERED: GENTAMICIN SULFATE IV SCH (19:00)
[2019-05-18] MEDS ORDERED: DEXTROSE 5% IV SCH (19:00)
[2019-05-18] MEDS: PRENATAL VITAMIN 1 TAB PO SCH (21:50)
[2019-05-19] MEDS: ACETAMINOPHEN 325 MG TAB PO PRN ×2 (00:14→09:39)
[2019-05-19] MEDS: LACTATED RINGER'S 1,000 ML IV SCH ×2 (00:45→09:41)
[2019-05-19] MEDS: CLINDAMYCIN 900 MG in DEXTROSE 5% 50 ML IV SCH ×2 (02:03→09:35)
[2019-05-19] MEDS: IBUPROFEN 600 MG TAB PO PRN (04:49)
[2019-05-19 07:15] LABS: Est GFR (African American) 138.8; Est GFR (Non-African American) 119.7
[2019-05-19] MEDS: DOCUSATE SODIUM 100 MG CAP PO SCH (08:07)
--- NOTE | 2019-05-19 09:19 | Obstetrical Progress Note ---
Date of Service May 19, 2019 Assessment & Plan Admission and Anticipated Discharge Date Admission Date: May 17, 2019 Physical Exam Physical Exam: abdomen soft and non tender vaginal bleeding scant hgb 8.3 no calf tenderness ambulating well patient requests discharge will discharge on oral antibiotics Results & Data ([facility] [place]) Vital Signs (Past 12 Hours) Vital Signs Temp Pulse Resp BP Pulse Ox 05/19/19 07:46 36.5 C 70 18 127/82 98 05/19/19 03:30 36.9 C 69 17 137/79 95 05/19/19 00:15 37.0 C 71 18 134/86 97
== END 2019-05-19 11:11 | disposition home or self-care (01) | DRG 776 ==
LOC: ED 15:19 → 4N 17:57